=== PATIENT | female | born 1980 | race Caucasian/White ===

== ENCOUNTER 2019-05-14 09:42 | Observation (INO) | payer MEDICAID, SELFPAY | END 2019-05-14 19:46 | disposition home or self-care (01) | LOC: MEDSURG 09:43 | PROVIDERS: Admitting Provider Student in an Organized Health Care Education/Training Program; Family Provider Internal Medicine Cardiovascular Disease; PCP Family Medicine; Visit Provider Student in an Organized Health Care Education/Training Program | DX: R07.9 Chest pain, unspecified (principal); K21.9 Gastro-esophageal reflux disease without esophagitis; F41.9 Anxiety disorder, unspecified; J43.9 Emphysema, unspecified; F17.210 Nicotine dependence, cigarettes, uncomplicated; Z82.49 Family history of ischemic heart disease and other diseases of the circulatory system; I11.0 Hypertensive heart disease with heart failure; I50.9 Heart failure, unspecified | CPT/HCPCS: 36415 ×2; 36600; 71045; 71275; 74177; 78452; 80048; 80053; 80061; 81001; 81025; 82803; 83036; 83605; 83880; 84484 ×3; 85025 ×2; 85378; 87040 ×2; 87804 ×2; 93005 ×2; 93017; 96374; 99285; A9500; G0378 ×115; J2785; Q9967 ==

== ENCOUNTER → 2019-05-20 07:52 | Outpatient (BNVA) | payer MEDICAID, SELFPAY | PROVIDERS: Family Provider Internal Medicine Cardiovascular Disease; PCP Family Medicine; Visit Provider Nurse Practitioner Family | DX: N30.91 Cystitis, unspecified with hematuria (principal); N20.0 Calculus of kidney; N99.89 Other postprocedural complications and disorders of genitourinary system; R31.0 Gross hematuria | CPT/HCPCS: 81001 ==

== ENCOUNTER 2019-05-26 11:46 | Emergency (ER) | payer MEDICAID, SELFPAY ==
[2019-05-26] VITALS (9 sets, daily range): BP systolic 111–155; BP diastolic 69–89; PULSE 55–68; RESP 12–21; TEMP 36.8; O2SAT 98–100; BMI 25.0
--- NOTE | 2019-05-26 11:54 | ED_ITS ---
Entered by Sunshine Stanley, acting as scribe for Magaly Cabrera MD, [facility] [place]PI - Chest Pain General: Chief Complaint: Chest Pain Stated Complaint: cp Time Seen by Provider: 05/26/19 11:50 Source: patient Mode of arrival: ambulatory Limitations: no limitations History of Present Illness: HPI narrative: 38 yo Female presents to ED with complaint of chest pain. Pt states that this happened yesterday too. Pt states that she had tingling in her right arm and in her chest. Pt states that this episode started about an hour ago. Pt states that her mom just from a heart attack in February. Pt states that she had nausea when the episode started. Pt states that she had sweating during the episode as well. MD complaint: chest pain Onset (ago): hour(s) (1) Timing of current episode: episodic and still present Prior episodes: Yes Onset: during rest Pain location: substernal Pain radiation: right arm Quality: other (tingling) Exacerbating factors: nothing Associated symptoms: Reports diaphoresis and nausea; Deny fever(s) Review of Systems General: Reports: 10 or more systems reviewed and unremarkable except in HPI and below Const: Reports: chills and diaphoresis; Denies: fever Card: Reports: chest pain and lightheadedness Resp: Denies: productive cough or non-productive cough GI: Reports: nausea PFSH ED PFSH: Statuses (acute, chronic, etc) shown below reflect problem list status as previously entered and may not be historically accurate Medical History Calculus of kidney (Acute) Cystitis (Acute) Gross hematuria (Acute) Surgical History H/O: hysterectomy (Acute) History of appendectomy (Acute) S/P cholecystectomy (Acute) Status post biopsy of kidney (Acute) Social History Smoking and tobacco status: former smoker Alcohol intake: former Marital status: Legally Current occupational status: employed Physical Exam Const: COMMON NORMALS: no apparent distress, average body habitus, oriented x3, no limitations, healthy appearing, alert and well nourished HENMT: COMMON NORMALS: normocephalic, head/scalp atraumatic, hearing grossly normal bilaterally, external ears normal, EAC's normal, TM's normal bilaterally, external nose normal, nasal mucous membranes and turbinates normal, moist oral mucous membranes, oropharynx normal, dentition normal and gingiva normal HEAD & SCALP: normocephalic and atraumatic NOSE: external nose normal and nasal mucous membranes and turbinates normal EXTERNAL EAR: Yes external ears normal EXTERNAL AUDITORY CANAL: EAC's normal TYMPANIC MEMBRANE: TM's normal bilaterally Eye: COMMON NORMALS: PERRL, EOMs intact bilaterally, conjunctivae normal, no scleral icterus, no papilledema, normal visual nick by confrontation and fundi normal bilaterally CONJUNCTIVA: Yes conjunctivae normal PUPIL: Yes PERRL DIRECT OPHTHALMOSCOPY: Yes no papilledema and Yes fundi normal bilaterally Neck/C-Spine: COMMON NORMALS: full ROM, supple, no meningeal signs, no JVD and no carotid bruits Chest: COMMONS NORMALS: inspection of chest normal and palpation of chest normal Resp: COMMON NORMALS: normal respiratory effort, no retractions, no use of accessory muscles, clear to auscultation bilaterally and percussion normal AUSCULTATION: clear to auscultation bilaterally PERCUSSION: percussion normal Cardio: COMMON NORMALS: no JVD, regular rate, regular rhythm, S1 normal heart sound, S2 normal heart sound, no gallops, no clicks, no murmurs, no rub and peripheral pulses 2+ throughout RATE: regular rate RHYTHM: regular rhythm HEART SOUNDS: S1 normal and S2 normal PERIPHERAL PULSES: pulses 2+ throughout GI: COMMON NORMALS: normal to inspection, nondistended, normoactive bowel sounds, soft to palpation, non-tender, no hepatosplenomegaly, no masses and no bruits PALPATION: Yes soft and Yes no hepatosplenomegaly : COMMON NORMALS: Yes no CVA tenderness BLADDER/KIDNEY EXAM: Yes no CVA tenderness Back/Pelvis: COMMON NORMALS: no CVA tenderness Extremity: COMMON NORMALS: normal to inspection, full ROM, normal capillary refill, no joint enlargement, no clubbing, cyanosis or edema, no calf tenderness and no pedal edema Neuro: COMMON NORMALS: oriented x3 SENSORIUM/ORIENTATION: Yes alert MENINGEAL SIGNS: Yes no meningeal signs Skin: COMMON NORMALS: no rashes or lesions noted, no wounds, skin turgor normal, no jaundice, no petechiae and no mottling GENERAL SKIN EXAM: no rashes or lesions noted and turgor normal Course Vital Signs: Vital signs: Vital Signs Temperature 98.3 F 05/26/19 11:54 Pulse Rate 62 05/26/19 16:15 Respiratory Rate 12 05/26/19 16:15 Blood Pressure 119/71 05/26/19 16:15 Pulse Oximetry 99 05/26/19 15:45 MDM - Chest Pain MDM Narrative: Medical decision making narrative: 38-year-old female patient with minimal cardiac risk factors. She presented with chest pain. Labs and imaging negative for acute findings including negative high-sensitivity troponin x2. D-dimer negative. The patient is discharged home with no new orders. Chest pain unlikely to be cardiac or serious. She voiced understanding and is in agreement with the plan. Heart score is 0, she is low risk for any major adverse cardiac event. Differential Diagnosis: Cardiac arrest differential diagnosis: Likely acute massive pulmonary embolism and acute myocardial infarction Medical Records: Attestation: I reviewed the patient's medical records. Lab Data: Attestation: I reviewed the patient's lab results. Labs: Lab Results 05/26/19 05/26/19 05/26/19 Range/Units 12:20 12:20 12:20 WBC 7.3 (4.0-10.0) 10^3/ uL RBC 4.14 (4.1-5.3) 10^6/u L Hgb 12.6 (11.5-15.3) g/dL Hct 38.9 (37.0-47.0) % MCV 94.0 (81-99) fL MCH 30.4 (28.0-34.0) pg MCHC 32.4 (30.0-36.0) g/dL RDW 12.2 (12.1-15.1) % Plt Count 204 (130-400) 10^3/c mm MPV 10.6 H (7.4-10.4) fL Neut % (Auto) 69.4 % Lymph % (Auto) 21.9 % Mobile % (Auto) 6.8 % Eos % (Auto) 1.2 % Baso % (Auto) 0.4 % Neut # (Auto) 5.0 (1.8-7.7) 10^3/u L Lymph # (Auto) 1.6 (0.8-4.8) 10^3/u L Mobile # (Auto) 0.5 (0.2-0.9) 10^3/u L Eos # (Auto) 0.1 (0.0-0.8) 10^3/u L Baso # (Auto) 0.0 (0.0-0.1) 10^3/u L Nucleated RBC % (a uto) 0 % Nucleated RBCs # 0.0 /100WBC D-Dimer 0.36 (0-0.59) ug/mIFE U Sodium 137 (136-145) mmol/L Potassium 3.5 (3.5-5.1) mmol/L Chloride 100 (98-107) mmol/L Carbon Dioxide 25 (22-29) mmol/L Anion Gap 15.5 (5-19) BUN 9 (6-20) mg/dL Creatinine 0.9 (0.5-0.9) mg/dL GFR Calculation 69.3 L (90-130) mL/min Glucose 99 (74-109) mg/dL Calcium 9.8 (8.6-10.0) mg/Dl Total Bilirubin 0.4 (0.15-1.2) mg/dL AST 16 (0-32) U/L ALT 11 (0-33) U/L Alkaline Phosphata se 65 (35-105) IU/L Troponin T Baselin e (0-10) ng/mL Troponin T 120 Min tangirnaq (0-10) ng/mL Delta Troponin T (0-10) ABS# NT-Pro-B Natriuret Pep 117 (0-125) pg/mL Total Protein 6.7 (6.6-8.7) g/dL Albumin 4.8 (3.5-5.2) g/dL Globulin 1.9 (1.3-4.6) g/dL Lipase 14 (13-60) U/L 05/26/19 05/26/19 Range/Units 12:20 14:36 WBC (4.0-10.0) 10^3/ uL RBC (4.1-5.3) 10^6/u L Hgb (11.5-15.3) g/dL Hct (37.0-47.0) % MCV (81-99) fL MCH (28.0-34.0) pg MCHC (30.0-36.0) g/dL RDW (12.1-15.1) % Plt Count (130-400) 10^3/c mm MPV (7.4-10.4) fL Neut % (Auto) % Lymph % (Auto) % Mobile % (Auto) % Eos % (Auto) % Baso % (Auto) % Neut # (Auto) (1.8-7.7) 10^3/u L Lymph # (Auto) (0.8-4.8) 10^3/u L Mobile # (Auto) (0.2-0.9) 10^3/u L Eos # (Auto) (0.0-0.8) 10^3/u L Baso # (Auto) (0.0-0.1) 10^3/u L Nucleated RBC % (a uto) % Nucleated RBCs # /100WBC D-Dimer (0-0.59) ug/mIFE U Sodium (136-145) mmol/L Potassium (3.5-5.1) mmol/L Chloride (98-107) mmol/L Carbon Dioxide (22-29) mmol/L Anion Gap (5-19) BUN (6-20) mg/dL Creatinine (0.5-0.9) mg/dL GFR Calculation (90-130) mL/min Glucose (74-109) mg/dL Calcium (8.6-10.0) mg/Dl Total Bilirubin (0.15-1.2) mg/dL AST (0-32) U/L ALT (0-33) U/L Alkaline Phosphata se (35-105) IU/L Troponin T Baselin e 6 (0-10) ng/mL Troponin T 120 Min tangirnaq 6.08 (0-10) ng/mL Delta Troponin T 0.08 (0-10) ABS# NT-Pro-B Natriuret Pep (0-125) pg/mL Total Protein (6.6-8.7) g/dL Albumin (3.5-5.2) g/dL Globulin (1.3-4.6) g/dL Lipase (13-60) U/L Imaging Data^: CXR: Radiologist's impression: [address] [address] XRay Report Signed Patient: Lilly Garibay #: [id number] : 1980Acct#:[id number] Age/Sex: 38 / FADM Date: 05/26/19 Loc: ERRoom/Bed: Attending Dr: Ordering Provider/Ordering MD: Magaly Cabrera MD, [facility] Date of Service: 05/26/19 Procedure(s): XR chest 2V* [id number] Accession Number(s): [id number] Report Number: [id number] PROCEDURE INFORMATION: Exam: XR Chest, 2 Views Exam date and time: 05/26/2019 12:28 PM Age: 38 years old Clinical indication: Chest pain; Type not specified TECHNIQUE: Imaging protocol: XR of the chest Views: 2 views. COMPARISON: CR Chest 1 [place] [id number] 05/13/2019 11:13 AM FINDINGS: Lungs: Emphysematous change and interstitial prominence. Pleural space: No pleural effusion. Heart/Mediastinum: Normal configuration of the heart. Bones/joints: Mild degenerative change. Other findings: Status post cholecystectomy. Prominent stool. When correlating with the previous study, no significant interval changes are present. XR/XR chest 2V* [id number] IMPRESSION: Stable appearance of the chest, not significantly changed from 05/13/2019. Dictated By:Daniel Posadas MD Signed By:Daniel Posadas MDSigned Date/Time:05/26/197 DD/ 1325 EKG Data^: EKG 1: Attestation: I personally reviewed and interpreted this EKG as follows: EKG interpretation date: 05/26/19 EKG interpretation time: 11:53 Prior EKG tracings: not available for review Interpretation: sinus rhythm HR [address] changes EKG 2: Attestation: I personally reviewed and interpreted this EKG as follows: EKG interpretation date: 05/26/19 EKG interpretation time: 13:41 Interpretation: Sinus bradycardia. Heart rate 59. Unchanged from prior EKG from earlier today. Discharge Plan Discharge Patient Disposition: Home, Self-Care Clinical Impression: Chest pain Qualifiers: Chest pain type: other chest pain Qualified Code(s): R07.89 - Other chest pain Condition: Stable Prescriptions: No Action cefuroxime axetil 500 mg tablet 500 mg PO BID Qty: 20 RF: 3 lisinopril [Zestril] 2.5 mg Tablet 2.5 mg PO DAILY RF: 0 methadone 10 mg Tablet 60 mg PO DAILY RF: 0 omeprazole 20 mg Tablet,Delayed Release (Dr/Ec) 20 mg PO DAILY RF: 0 vitamin B complex 2 tab PO DAILY RF: 0 Discharge Orders: Discharge Order (Routine); Ordered 05/26/19 Ordered By: Magaly Cabrera Referrals: Tuyet Urias DO [Primary Care Provider] - 1-3 days Natanael Rm [Family Provider] - 1-3 days Activity Restrictions/Additional Instructions: Return for any new or worsening symptoms. Follow-up with your primary care provider within 3 days. Take your medications as prescribed by your primary care provider. Coding Level of Care Code ED Donkey Doctor for Chg Fwd Exam Problem Focused The documentation recorded by the Lizeth contreras Carmen, accurately reflects the service I personally performed and the decisions made by Rick douglas Adegoke I, MD, [facility] May 26, 2019 11:46
--- NOTE | 2019-05-26 12:02 | XRR_ITS ---
PROCEDURE INFORMATION: Exam: XR Chest, 2 Views Exam date and time: 05/26/2019 12:28 PM Age: 38 years old Clinical indication: Chest pain; Type not specified TECHNIQUE: Imaging protocol: XR of the chest Views: 2 views. COMPARISON: CR Chest 1 [place] [id number] 05/13/2019 11:13 AM FINDINGS: Lungs: Emphysematous change and interstitial prominence. Pleural space: No pleural effusion. Heart/Mediastinum: Normal configuration of the heart. Bones/joints: Mild degenerative change. Other findings: Status post cholecystectomy. Prominent stool. When correlating with the previous study, no significant interval changes are present. XR/XR chest 2V* [id number] IMPRESSION: Stable appearance of the chest, not significantly changed from 05/13/2019.
--- NOTE | 2019-05-26 12:03 | ECG_ITS ---
Measurements Intervals [place] Rate: 64 P: 64 ME: 145 QRS: 53 QRSD: 118 T: 20 QT: 437 QTc: 452 SINUS RHYTHM INCOMPLETE RIGHT BUNDLE BRANCH BLOCK [90+ ms QRS DURATION, TERMINAL R IN V1/V2, 40+ ms S IN I/aVL/V4/V5/V6] Compared to ECG 05/13/2019 16:55:52 Incomplete right bundle-branch block now present T-wave abnormality no longer present Electronically Signed On 05-26-2019 19:19:55 ELECTRIC MOTORMAN by Geovanny Whitley M.D. [email or web address] kaplan
[2019-05-26] MEDS: nitroglycerin 0.4 mg sublingual Tablet SUBLINGUAL (12:09)
[2019-05-26] MEDS: aspirin 325 mg Tablet PO (12:09)
--- NOTE | 2019-05-26 12:22 | PC.NURSE ---
Chest pain now resolved. Additional nitro withheld
--- NOTE | 2019-05-26 12:23 | PC.NURSE ---
Patient to imaging via wheelchair
--- NOTE | 2019-05-26 12:34 | PC.NURSE ---
Report putting her head on husbands chest and listening to his heartbeat relieves her own chest pain. She wants to know how she can distinguish anxiety from a heart attack.
[2019-05-26 12:44] LABS: Basophils % 0.4 %; Eosinophils # 0.1 10^3/uL (0.0-0.8); Eosinophils % 1.2 %; Hematocrit 38.9 % (37.0-47.0); Hemoglobin 12.6 g/dL (11.5-15.3); Lymphocytes # 1.6 10^3/uL (0.8-4.8); Lymphocytes % 21.9 %; Mean Corpuscular HGB Conc 32.4 g/dL (30.0-36.0); Mean Corpuscular Hemoglobin 30.4 pg (28.0-34.0); Mean Platelet Volume 10.6 fL (7.4-10.4); Monocytes # 0.5 10^3/uL (0.2-0.9); Monocytes % 6.8 %; Neutrophils % 69.4 %; Nucleated Red Blood Cells % 0 %; Platelet Count 204 10^3/cmm (130-400); Red Blood Count 4.14 10^6/uL (4.1-5.3); Red Cell Distribution Width 12.2 % (12.1-15.1); White Blood Count 7.3 10^3/uL (4.0-10.0)
[2019-05-26 12:53] LABS: D Dimer 0.36 ug/mIFEU (0-0.59)
--- NOTE | 2019-05-26 13:05 | PC.NURSE ---
Patient denies pain or other symptoms at this time.
[2019-05-26 13:11] LABS: Alanine Aminotransferase 11 U/L (0-33); Albumin Level 4.8 g/dL (3.5-5.2); Alkaline Phosphatase 65 IU/L (35-105); Anion Gap 15.5 (5-19); Aspartate Amino Transferase 16 U/L (0-32); Blood Urea Nitrogen 9 mg/dL (6-20); Calcium 9.8 mg/Dl (8.6-10.0); Carbon Dioxide 25 mmol/L (22-29); Chloride 100 mmol/L (98-107); Globulin 1.9 g/dL (1.3-4.6); Glomerular Filtration Rate 69.3 mL/min (90-130); Glucose 99 mg/dL (74-109); Lipase 14 U/L (13-60); NT Pro B Type Natriuretic Pept 117 pg/mL (0-125); Potassium 3.5 mmol/L (3.5-5.1); Sodium 137 mmol/L (136-145); Total Bilirubin 0.4 mg/dL (0.15-1.2); Total Protein 6.7 g/dL (6.6-8.7)
[2019-05-26 13:26] LABS: Troponin(5th) Baseline 6 ng/mL (0-10)
--- NOTE | 2019-05-26 14:03 | ECG_ITS ---
Measurements Intervals [place] Rate: 59 P: 60 KS: 154 QRS: 53 QRSD: 110 T: 37 QT: 455 QTc: 451 SINUS BRADYCARDIA INCOMPLETE RIGHT BUNDLE BRANCH BLOCK [90+ ms QRS DURATION, TERMINAL R IN V1/V2,40+ ms S IN I/aVL/V4/V5/V6] INTERPRETATION BASED ON A DEFAULT AGE OF 38 YEARS Compared to ECG 05/13/2019 16:55:52 Incomplete right bundle-branch block now present Sinus rhythm no longer present T-wave abnormality no longer present Electronically Signed On 05-26-2019 19:23:18 TOOL ROOM MACHINIST by Geovanny Whitley M.D. [email or web address] kaplan
--- NOTE | 2019-05-26 15:00 | PC.NURSE ---
Note that patient requests update on comment section in EMR. At bedside to give update. Patient reports her blood was just recollected. Reasoning provided. Patient verbalized understanding and will continue to wait for results.
[2019-05-26 15:54] LABS: Troponin 5 2HR 6.08 ng/mL (0-10); Troponin 5 2HR Delta 0.08 ABS# (0-10)
== END 2019-05-26 16:46 | disposition home or self-care (01) ==
PROVIDERS: Emergency Provider Family Medicine; Family Provider Internal Medicine Cardiovascular Disease; PCP Family Medicine
DX: R07.89 Other chest pain (principal); Z87.891 Personal history of nicotine dependence
CPT/HCPCS: 36415; 71046; 80053; 83690; 83880; 84484; 85025; 85378; 93005; 99282

== ENCOUNTER 2019-07-01 09:44 | Outpatient (CLI) | payer MEDICAID, SELFPAY ==
--- NOTE | 2019-07-01 10:00 | XR_ITS ---
WS: [id number] XR KUB [id number] REASON FOR EXAM: Kidney stone FINDINGS: Considerable fecal stasis is seen across the colon. The renal shadows do not appear to be enlarged and no definite stones are seen. Along the left side a t the L5 level there is a questionable stone frozen. XR/XR KUB [id number] IMPRESSION: Questionable stone at the L5 level on the left in the region of the ureter Fecal stasis.
== END 2019-07-01 09:45 | disposition home or self-care (01) ==
LOC: RAD 09:46
PROVIDERS: Family Provider Internal Medicine Cardiovascular Disease; PCP Family Medicine; Visit Provider Urology
DX: N20.0 Calculus of kidney (principal)
CPT/HCPCS: 74018; 81001; 87086; 88112

== ENCOUNTER → 2019-07-26 14:04 | Outpatient (BNVA) | payer OTHER, SELFPAY | PROVIDERS: Family Provider Internal Medicine Cardiovascular Disease; PCP Family Medicine; Referring Provider Family Medicine; Visit Provider Family Medicine | DX: N63.10 Unspecified lump in the right breast, unspecified quadrant (principal); N63.20 Unspecified lump in the left breast, unspecified quadrant; M25.561 Pain in right knee; M77.8 Other enthesopathies, not elsewhere classified | CPT/HCPCS: 88175 ==

== ENCOUNTER 2019-10-11 08:37 | Outpatient (CLI) | payer MEDICAID, SELFPAY ==
--- NOTE | 2019-10-11 08:57 | MM_ITS ---
WS: [id number] BILATERAL DIGITAL DIAGNOSTIC MAMMOGRAPHY WITH CAD CLINICAL INFORMATION: breast density HISTORY: Diagnostic mammogram. 6 Bilateral breast lumps. COMPARISON: August 14, 2014 TECHNIQUE: Bilateral CC and MLO views. FINDINGS: Palpable markers both breasts. No definite new mammographic abnormalities deep to the palpable marker s. The breasts are composed of heterogeneous fibroglandular density tissue, which can limit the detectio n of small underlying mass lesions. Ultrasound is pending. ULTRASOUND BREAST BILATERAL TECHNIQUE: Ultrasound bilateral focused area of concern. CLINICAL INFORMATION: breast density COMPARISON: Ultrasound August 14, 2014 FINDINGS: Ultrasound right breast at the 4:00 position. No evidence of cystic or solid lesion. No pathologic ab normalities. Ultrasound left breast patient directed 10 and 12:00 positions. No cystic or solid lesions. No suspic ious lesions. No lesions to target for biopsy. Dense normal appearing fibroglandular tissue similar t o 2014 at the 12:00 position. No suspicious findings. MM/[place] [id number] IMPRESSION: BI-RADS: 2-Benign FOLLOW UP: 1 Year Follow-up Recommend return to annual screening mammography.
== END 2019-10-11 08:38 | disposition home or self-care (01) ==
LOC: RADSHAW 08:41
PROVIDERS: Visit Provider Family Medicine
DX: R92.2 Inconclusive mammogram (principal)
CPT/HCPCS: 76641; 77066

== ENCOUNTER → 2019-10-21 15:11 | Outpatient (BNVA) | payer MEDICAID, SELFPAY | PROVIDERS: PCP Family Medicine; Visit Provider Nurse Practitioner | DX: G43.709 Chronic migraine without aura, not intractable, without status migrainosus (principal); G47.00 Insomnia, unspecified; Z87.891 Personal history of nicotine dependence | CPT/HCPCS: 99213; 99999 ==

== ENCOUNTER → 2019-10-29 15:00 | Outpatient (BNVA) | payer MEDICAID, SELFPAY | PROVIDERS: PCP Family Medicine; Visit Provider Family Medicine | DX: R63.5 Abnormal weight gain (principal); G47.00 Insomnia, unspecified | CPT/HCPCS: 84439; 84443 ==

== ENCOUNTER → 2019-11-12 15:23 | Outpatient (BNVA) | payer MEDICAID, SELFPAY | PROVIDERS: PCP Family Medicine; Visit Provider Family Medicine | DX: R35.0 Frequency of micturition (principal) | CPT/HCPCS: 81000 ==

== ENCOUNTER 2019-11-18 14:18 | Outpatient (CLI) | payer MEDICAID, SELFPAY ==
--- NOTE | 2019-11-18 14:15 | XRR_ITS ---
PROCEDURE INFORMATION: Exam: XR Abdomen, 1 View Exam date and time: 11/18/2019 3:16 PM Age: 38 years old Clinical indication: Condition or disease; Other: Stone TECHNIQUE: Imaging protocol: XR of the abdomen. Views: Frontal supine view of the abdomen. 1 View. COMPARISON: CR XR KUB [id number] 07/01/2019 10:03 AM FINDINGS: Gastrointestinal tract: Normal. No bowel dilation. Bones/joints: Unremarkable. XR/XR KUB [id number] IMPRESSION: No acute findings.
== END 2019-11-18 14:19 | disposition home or self-care (01) ==
LOC: RAD 14:19
PROVIDERS: PCP Family Medicine; Visit Provider Nurse Practitioner Family
DX: N20.0 Calculus of kidney (principal)
CPT/HCPCS: 74018

== ENCOUNTER 2019-12-18 13:43 | Outpatient (CLI) | payer MEDICAID, SELFPAY ==
--- NOTE | 2019-12-18 14:15 | XR_ITS ---
WS: [id number] SHOULDER LEFT TECHNIQUE: 3 views of the left shoulder CLINICAL INFORMATION: chronic left shoulder pain COMPARISON: None. FINDINGS: Normal acromioclavicular joint. Calcific tendinitis rotator cuff. Normal glenohumeral joint. Acromion is normal in appearance. Normal glenoid. No evidence of acute fracture dislocation. XR/XR shoulder LT min 2V* [id number] IMPRESSION: Calcific tendinitis rotator cuff insertion.
== END 2019-12-18 13:44 | disposition home or self-care (01) ==
LOC: RADWPI 13:46
PROVIDERS: PCP Family Medicine; Visit Provider Family Medicine
DX: M25.512 Pain in left shoulder (principal); G89.29 Other chronic pain; M75.32 Calcific tendinitis of left shoulder
CPT/HCPCS: 73030

== ENCOUNTER 2019-12-31 13:53 | Outpatient (CLI) | payer MEDICAID, SELFPAY ==
--- NOTE | 2019-12-31 14:15 | XR_ITS ---
WS: [id number] EXAM: ABDOMINAL KUB DATE OF EXAMINATION: 12/31/2019, 1406 hour COMPARISON: Abdominal KUB from 11/18/2019 and 07/01/2019. HISTORY: Patient is 39 years old with follow-up kidney stone. FINDINGS: Bowel gas pattern is normal. Increased stool overlies the right kidney silhouette obscuring detail. A s presented no definite calcifications seen over either kidney silhouette or course of the proximal u reters. Multiple calcifications in the pelvis are felt to represent phleboliths. Calcification just t o the lateral margin of the S4 segment is similar to the 11/18/2019 KUB but not seen on the 07/01/2019 K UB. Question if this is a left ureteral stone. Clips in the right upper quadrant correlate with vinayak cystectomy changes. XR/XR KUB [id number] IMPRESSION: Normal bowel gas pattern. Calcification to the left of the sacrum around the S4 segment not seen on 07/01/2019 exam but stable compared to 11/18/2019 exam. [facility] ion left ureteral stone.
== END 2019-12-31 13:54 | disposition home or self-care (01) ==
LOC: RAD 13:56
PROVIDERS: PCP Family Medicine; Visit Provider Urology
DX: N20.9 Urinary calculus, unspecified (principal)
CPT/HCPCS: 74018; 80053; 81001

== ENCOUNTER → 2020-01-30 09:43 | Outpatient (BNVA) | payer MEDICAID, SELFPAY | PROVIDERS: PCP Family Medicine; Referring Provider Family Medicine; Visit Provider Anesthesiology Pain Medicine | DX: M47.812 Spondylosis without myelopathy or radiculopathy, cervical region (principal); M54.12 Radiculopathy, cervical region; M47.816 Spondylosis without myelopathy or radiculopathy, lumbar region; M54.42 Lumbago with sciatica, left side; M54.41 Lumbago with sciatica, right side; M54.81 Occipital neuralgia; M54.9 Dorsalgia, unspecified; F17.210 Nicotine dependence, cigarettes, uncomplicated | CPT/HCPCS: 99203; 99204 ==

== ENCOUNTER → 2020-02-07 10:53 | Outpatient (BNVA) | payer MEDICAID, SELFPAY | PROVIDERS: PCP Family Medicine; Visit Provider Surgery | DX: R10.13 Epigastric pain (principal); Z20.828 Contact with and (suspected) exposure to other viral communicable diseases | CPT/HCPCS: 87635 ==

== ENCOUNTER 2020-02-12 06:27 | Day surgery (SDC) | payer MEDICAID, SELFPAY ==
[2020-02-10 10:42] VITALS: BMI 26.6
[2020-02-12 06:41] VITALS: BP 130/76; PULSE 77; RESP 18; TEMP 36.5; O2SAT 98; BMI 26.6
[2020-02-12] MEDS: sodium chloride 0.9% 1,000 ML 30 ML IV (06:48)
--- NOTE | 2020-02-12 06:57 | ANES.PREANE2 ---
Pre-Anesthetic Assessment Pre-Anesthetic Assessment: Height/Weight: Height 1.65 m Weight 72.575 kg Temp Pulse Resp BP Pulse Ox 97.7 F 77 18 130/76 98 02/12/20 06:41 02/12/20 06:41 02/12/20 06:41 02/12/20 06:41 02/12/20 06:41 Preop Diagnosis: EPIGASTRIC SILVA Proposed Procedure: Operation Date: 02/12/20 07:45 Proposed Procedures p EGD 30734 R10.13(Not Applicable) - Srinivas Nogueira MD Familial anesthetic complications: nONE Last intake: Intake Last Liquid Date 02/11/20 Last Liquid Time 20:00 Last Solid Date 02/11/20 Last Solid Time 20:00 Social: Social History: Tobacco and No alcohol Exam: Pre-Anes Outpt Exam: alert, oriented x 3, clear to auscultation bilaterally and regular rate & rhythm Airway: Cervical ROM: WNL MP: 1 Dentition: Full CV/HEM: CV/HEM: HTN and Palp Comments: AAA - stable : : Chronic renal Insufficiency GI: GI: GERD Anesthetic Plan: ASA status: 2 Anesthesia: MAC Risk of > 500 ml blood loss (7ml/kg in children): No Meds/Allergies Current Medications: Current Medications Generic Name Dose Route Start Last Admin Trade Name Freq PRN Reason Stop Dose Admin Sodium Chloride 1,000 mls @ 30 ml s/hr 02/12/20 06:45 02/12/20 06:48 Sodium Chloride 0.9% IV 02/13/20 06:44 30 mls/hr .Q24H GRACE Administration PFSH Anesthesia PFSH: Medical History (Updated 01/30/20 @ 10:48 by Tom Hickman MD) Calculus of kidney Cystitis GERD (gastroesophageal reflux disease) Gross hematuria Headache, chronic migraine without aura Palpitations Surgical History H/O: hysterectomy History of appendectomy S/P cholecystectomy Status post biopsy of kidney Family History Father Cancer Hypertension Mother Hypertension Social History (Updated 01/30/20 @ 10:16 by BRAD Funes) Smoking and tobacco status: current every day smoker cigarettes Packs smoked per day: 1 Alcohol intake: never Marital status: Legally Current occupational status: employed History of recent travel: No Data Anesthesia Cardiac Studies: No Data to Display
--- NOTE | 2020-02-12 07:33 | W.PM.OPSUD ---
Surgery/Procedure H&P Update DATE OF PROCEDURE: February 12, 2020 DATE H&P PERFORMED: 01/27/20 H&P UPDATE INFORMATION: I have reviewed H&P completed within last 30 days, I have examined patient prior to procedure and No changes to prior documentation PREOP DIAGNOSIS: EPIGASTRIC SILVA PRIMARY INDICATION FOR PROCEDURE: The same PLANNED PROCEDURE: Operation Date: 02/12/20 07:45 Proposed Procedures p EGD 39726 R10.13(Not Applicable) - Srinivas Nogueira MD
[2020-02-12 07:51] VITALS: BP 97/57; PULSE 55; RESP 18; TEMP 36.4; O2SAT 94
--- NOTE | 2020-02-12 07:56 | ANE.PACU2 ---
Inpatient post-anesthesia follow up: Airway intact: Yes Vital signs: Temperature 97.5 F Pulse Rate 55 Respiratory Rate 18 Blood Pressure 97/57 Pulse Oximetry 94 Oxygen Delivery Me thod Room Air Oxygen Flow Rate Fraction of Inspir ed Oxygen Hydration adequate: Yes Nausea and vomiting: No Mental status: Baseline
[2020-02-13 06:02] LABS: H. Pylori / CLO Test Negative
== END 2020-02-12 08:10 | disposition home or self-care (01) ==
PROVIDERS: PCP Family Medicine; Visit Provider Surgery
PROC: 0DJ08ZZ Inspection of Upper Intestinal Tract, Via Natural or Artificial Opening Endoscopic (ICD-10-PCS; CPT 43235; principal; 2020-02-12 07:45)
DX: R10.13 Epigastric pain (principal); K29.70 Gastritis, unspecified, without bleeding; I10 Essential (primary) hypertension; K21.9 Gastro-esophageal reflux disease without esophagitis; Z87.891 Personal history of nicotine dependence
CPT/HCPCS: 12345; 43239; 87077; J2704; J7030

== ENCOUNTER → 2020-02-26 15:41 | Outpatient (BNVA) | payer MEDICAID, SELFPAY | PROVIDERS: PCP Family Medicine; Visit Provider Nurse Practitioner Family | DX: R31.0 Gross hematuria (principal); R10.9 Unspecified abdominal pain; N20.0 Calculus of kidney; K59.09 Other constipation | CPT/HCPCS: 81001 ==

== ENCOUNTER → 2020-02-27 08:56 | Outpatient (BNVA) | payer MEDICAID, SELFPAY | PROVIDERS: PCP Family Medicine; Visit Provider Anesthesiology Pain Medicine | DX: M47.812 Spondylosis without myelopathy or radiculopathy, cervical region (principal); M47.816 Spondylosis without myelopathy or radiculopathy, lumbar region; M54.81 Occipital neuralgia; M54.9 Dorsalgia, unspecified | CPT/HCPCS: 99213 ==

== ENCOUNTER 2020-02-27 09:35 | Outpatient (CLI) | payer MEDICAID, SELFPAY ==
--- NOTE | 2020-02-27 09:43 | XR_ITS ---
WS: [id number] LUMBAR SPINE TECHNIQUE: 5 views of the lumbar spine CLINICAL INFORMATION: pain COMPARISON: None. FINDINGS: Cholecystectomy clips. Aortic calcification. Five isv-ihf-gtlperv lumbar vertebral bodies. Disc space heights are well preserved. No compression f ractures. No spondylolisthesis. Visualized sacroiliac joints are normal. Normal visualized soft tissu es. Partially visualized bowel gas pattern is normal. XR/XR lumbar spine min 4V [id number] IMPRESSION: 1. Normal lumbar spine. No acute compression fractures. 2. Disc space size vertebral body heights well-preserved. 3. Mild chronic anterior wedging lower thoracic spine. 4. No other significant findings.
== END 2020-02-27 09:36 | disposition home or self-care (01) ==
LOC: RADWPI 09:38
PROVIDERS: PCP Family Medicine; Visit Provider Anesthesiology Pain Medicine
DX: M54.5 Low back pain (principal); M48.54XA Collapsed vertebra, not elsewhere classified, thoracic region, initial encounter for fracture; X58.XXXA Exposure to other specified factors, initial encounter
CPT/HCPCS: 72114

== ENCOUNTER → 2020-03-23 08:51 | Outpatient (BNVA) | payer MEDICAID, SELFPAY | PROVIDERS: PCP Family Medicine; Visit Provider Anesthesiology Pain Medicine | DX: M47.812 Spondylosis without myelopathy or radiculopathy, cervical region (principal); M54.41 Lumbago with sciatica, right side; M47.816 Spondylosis without myelopathy or radiculopathy, lumbar region; M54.81 Occipital neuralgia; M54.9 Dorsalgia, unspecified; G56.00 Carpal tunnel syndrome, unspecified upper limb; F17.210 Nicotine dependence, cigarettes, uncomplicated | CPT/HCPCS: 99214 ==

== ENCOUNTER → 2020-04-01 13:53 | Outpatient (BNVA) | payer MEDICAID, SELFPAY | PROVIDERS: PCP Family Medicine; Visit Provider Nurse Practitioner Family | DX: Z20.828 Contact with and (suspected) exposure to other viral communicable diseases (principal); J06.9 Acute upper respiratory infection, unspecified | CPT/HCPCS: 87635 ==

== ENCOUNTER → 2020-04-03 11:13 | Outpatient (BNVA) | payer MEDICAID, SELFPAY | PROVIDERS: PCP Family Medicine; Visit Provider Family Medicine | DX: E03.9 Hypothyroidism, unspecified (principal) | CPT/HCPCS: 84443 ==

== ENCOUNTER → 2020-05-18 08:37 | Outpatient (BNVA) | payer MEDICAID, SELFPAY | PROVIDERS: PCP Family Medicine; Visit Provider Anesthesiology Pain Medicine | DX: G89.29 Other chronic pain (principal); M47.816 Spondylosis without myelopathy or radiculopathy, lumbar region; M50.90 Cervical disc disorder, unspecified, unspecified cervical region; M54.12 Radiculopathy, cervical region; M47.812 Spondylosis without myelopathy or radiculopathy, cervical region; M79.602 Pain in left arm | CPT/HCPCS: 99214 ==

== ENCOUNTER → 2020-05-19 11:09 | Outpatient (BNVA) | payer MEDICAID, SELFPAY | PROVIDERS: PCP Family Medicine; Visit Provider Family Medicine | DX: R10.9 Unspecified abdominal pain (principal) | CPT/HCPCS: 81000 ==

== ENCOUNTER 2020-05-27 12:16 | Outpatient (RCR) | payer MEDICAID, SELFPAY | END 2020-06-14 23:59 | disposition home or self-care (01) | LOC: SPT 12:16 | PROVIDERS: PCP Family Medicine; Referring Provider Anesthesiology Pain Medicine; Visit Provider Anesthesiology Pain Medicine | DX: M54.2 Cervicalgia (principal); G89.29 Other chronic pain | CPT/HCPCS: 97110; 97162 ==

== ENCOUNTER 2020-05-27 14:16 | Outpatient (CLI) | payer MEDICAID, SELFPAY ==
--- NOTE | 2020-05-27 14:30 | XR_ITS ---
WS: [id number] KUB, 05/27/2020 Clinical Data: KIDNEY STONE Comparison: KUB, 12/31/2019. Findings: No abnormal intraabdominal masses or calcifications are seen. There is no dilatated small bowel or ev idence of obstruction. There is fecal material throughout the colon. There are phleboliths in the true pelvis. There are cora cifications in the right upper quadrant from a cholecystectomy. XR/XR KUB [id number] Impression: Negative KUB.
== END 2020-05-27 14:17 | disposition home or self-care (01) ==
LOC: RAD 14:22
PROVIDERS: PCP Family Medicine; Visit Provider Nurse Practitioner Family
DX: N20.0 Calculus of kidney (principal)
CPT/HCPCS: 74018; 81003

== ENCOUNTER 2020-06-15 06:00 | Outpatient (RCR) | payer MEDICAID, SELFPAY | END 2020-07-12 23:59 | disposition home or self-care (01) | LOC: SPT 06:00 | PROVIDERS: PCP Family Medicine; Referring Provider Anesthesiology Pain Medicine; Visit Provider Anesthesiology Pain Medicine | DX: M54.2 Cervicalgia (principal); G89.29 Other chronic pain | CPT/HCPCS: 97110 ==

== ENCOUNTER 2020-07-16 08:34 | Emergency (ER) | payer MEDICAID, SELFPAY ==
--- NOTE | 2020-07-16 08:38 | ECG_ITS ---
[facility] Test Date: 2020-07-16 Pat Name: Lilly Alvarado Department: Room: Gender: Female Evp Managing Director: : 1980 Requested By: Cheyanne Cornell Order Number: [id number] Vasques MD: Sugey Pat M.D. Measurements Intervals [place] Rate: 80 P: 62 PA: 140 QRS: 49 QRSD: 97 T: 12 QT: 359 QTc: 417 Interpretive Statements SINUS RHYTHM POSSIBLE RIGHT VENTRICULAR CONDUCTION DELAY [RSR (QR) IN V1/V2] NONSPECIFIC T-WAVE ABNORMALITY No previous ECG available for comparison Electronically Signed On 07-16-2020 21:58:30 SALES MERCHANDISE ASSOCIATE by Sugey Pat M.D. [email or web address]
--- NOTE | 2020-07-16 08:38 | XR_ITS ---
WS: [id number] Portable AP upright chest, 07/16/2020 Clinical Data: chest pain Comparison: PA and lateral chest, 05/26/2019. Findings: No nodules, masses or effusions are seen. The heart is normal. The pulmonary vascularity is not increased. No pneumonia or pneumothorax is seen. There are monitor leads on the chest wall. Ther e are clips in the right upper quadrant from a cholecystectomy. XR/XR chest 1V portable [id number] Impression: Negative chest.
[2020-07-16 08:43] VITALS: BP 122/77; PULSE 87; RESP 16; TEMP 36.2; O2SAT 96; BMI 26.6
--- NOTE | 2020-07-16 08:49 | ED_ITS ---
HPI - Arrhythmia/Palpitations General: Chief Complaint: Chest Pain Stated Complaint: high bp, heart palps Time Seen by Provider: 07/16/20 08:37 Source: patient Mode of arrival: ambulatory Limitations: no limitations History of Present Illness: HPI narrative: Patient is a 39-year-old female presents to ED today with a complaint of chest pain, palpitations and elevated blood pressure. Patient tells me she has had intermittent palpitations for a long time . She states she has seen Dr. Gomez for this. Patient tells me she also has been noticing elevated BP readings over the past week (150-160s over 90s). Patient tells me she has discussed this with her PCP but states every time she goes to their office her BP is normal so they do not ever prescribe her medications. Patient tells me she has leftover lisinopril that she was prescribed from the ED years ago that she takes as needed if she notices her blood pressure elevated. Patient states at work earlier today around 7 AM she began noticing pain in the middle of her chest. There is no radiation. Patient does not have a history of heart disease. MD complaint: palpitations Onset (ago): day(s) Duration: intermittent Severity: mild Context: occurred during rest Associated symptoms: Reports no associated symptoms; Deny nausea, pre-syncope, syncope or vomiting Review of Systems Const: Denies: fever(s), chills, body aches, fatigue or malaise Eyes: Denies: change in vision, blurry vision, photophobia, floaters or seeing flashes Card: Reports: chest pain and palpitations; Denies: irregular heart rhythm, edema, swelling of feet/ankles, lightheadedness, syncope, pre-syncope, dyspnea on exertion, orthopnea, leg pain with exertion or acrocyanosis Resp: Denies: dyspnea, productive cough, non-productive cough, pain on inspiration, change in phlegm color, hemoptysis or chest congestion GI: Denies: abdominal pain, nausea, vomiting, heartburn or diarrhea : Denies: flank pain, dysuria or urinary urgency Musc: Denies: neck pain, back pain or joint pain Skin/Breast: Denies: rash Neuro: Denies: headache(s), numbness in extremities, weakness in extremities, sensory changes, lack of coordination, difficulty walking, frequent falls, dizziness, confusion or Slurred speech present [facility] ED PFSH: Medical History (Updated 07/16/20 @ 11:40 by RILEY Tran) Calculus of kidney Cystitis GERD (gastroesophageal reflux disease) Gross hematuria Headache, chronic migraine without aura Palpitations Surgical History H/O: hysterectomy History of appendectomy S/P cholecystectomy Status post biopsy of kidney Family History Father Cancer Hypertension Mother Hypertension Social History Smoking and tobacco status: current every day smoker cigarettes Packs smoked per day: 1 Alcohol intake: never Marital status: Legally Current occupational status: employed History of recent travel: No Physical Exam Const: COMMON NORMALS: no acute distress, average body habitus, patient oriented x3, no limitations, healthy appearing, alert and well nourished GENERAL APPEARANCE: cooperative ORIENTATION/CONSCIOUSNESS: Yes awake, Yes oriented to person, Yes oriented to place and Yes oriented to time HENMT: COMMON NORMALS: normocephalic and atraumatic HEAD & SCALP: normocephalic and atraumatic Neck/C-Spine: COMMON NORMALS: full ROM, no lymphadenopathy, supple and no meningeal signs Chest: COMMONS NORMALS: normal inspection of the chest and normal palpation of entire chest wall Resp: COMMON NORMALS: normal respiratory effort and clear to auscultation bilaterally AUSCULTATION: clear to auscultation bilaterally Cardio: COMMON NORMALS: regular rate and regular rhythm RATE: regular rate RHYTHM: regular rhythm GI: COMMON NORMALS: Normal to inspection, nondistended, normoactive bowel sounds present, Soft to palpation, non-tender, No hepatosplenomegaly present and no masses PALPATION: Yes Soft to palpation and Yes No hepatosplenomegaly present : COMMON NORMALS: Yes no CVA tenderness BLADDER/KIDNEY EXAM: Yes no CVA tenderness Back/Pelvis: COMMON NORMALS: no CVA tenderness and thoracic and lumbar spine normal to inspection Extremity: COMMON NORMALS: normal to inspection Neuro: LAYLA COMA SCALE: document GCS findings Adams coma scale eye opening: Spontaneous Layla coma scale verbal response: Orientated Adams coma scale motor response: Obey commands Adams coma scale total score: 15 COMMON NORMALS: patient oriented x3, CN's II-XII intact bilaterally, moves all extremities, no focal motor deficits, no sensory deficits noted and gait normal SENSORIUM/ORIENTATION: Yes alert, Yes oriented to person, Yes oriented to place and Yes oriented to time MENINGEAL SIGNS: Yes no meningeal signs Skin: COMMON NORMALS: no rashes or lesions noted GENERAL SKIN EXAM: no rashes or lesions noted Course Vital Signs: Vital signs: Vital Signs Temperature 97.2 F L 07/16/20 08:43 Pulse Rate 67 07/16/20 11:00 Respiratory Rate 16 07/16/20 11:00 Blood Pressure 108/74 07/16/20 11:00 Pulse Oximetry 100 07/16/20 11:00 MDM - Arrhythmia/Palpitations MDM Narrative: Medical decision making narrative: Patient presented today with a complaint of chest pain, palpitations, and elevated blood pressure readings at home. Her blood pressure has been completely normal throughout her stay. Baseline and repeat EKGs are normal. I have not noticed any arrhythmia or ectopic beats on patient's monitor throughout her stay. Patient's baseline troponin is normal with a delta of 0. CXR is normal. Her TSH was very mildly elevated with a normal free T4 so I do not feel this is contributing to her palpitations. Patient does have a msw she can follow-up with if palpitations persist. Recommend she keep BP log to follow-up with her primary care provider. There is no need to place patient on antihypertensive medication at this point from the ED. Lab Data: Labs: Lab Results 07/16/20 07/16/20 07/16/20 Range/Units 08:38 08:38 08:38 WBC 11.2 H (4.0-10.0) 10^3/ uL RBC 4.49 (4.1-5.3) 10^6/u L Hgb 13.8 (11.5-15.3) g/dL Hct 43.2 (37.0-47.0) % MCV 96.2 (81-99) fL MCH 30.7 (28.0-34.0) pg MCHC 31.9 (30.0-36.0) g/dL RDW 13.2 (12.1-15.1) % Plt Count 237 (130-400) 10^3/c mm MPV 9.9 (7.4-10.4) fL Neut % (Auto) 78.1 % Lymph % (Auto) 14.2 % [place] % (Auto) 6.2 % Eos % (Auto) 0.6 % Baso % (Auto) 0.4 % Neut # (Auto) 8.75 H (1.8-7.7) 10^3/u L Lymph # (Auto) 1.6 (0.8-4.8) 10^3/u L [place] # (Auto) 0.7 (0.2-0.9) 10^3/u L Eos # (Auto) 0.1 (0.0-0.8) 10^3/u L Baso # (Auto) 0.1 (0.0-0.1) 10^3/u L Nucleated RBC % (a uto) 0 % Nucleated RBCs # 0.0 /100WBC Sodium 136 (136-145) mmol/L Potassium 4.0 (3.5-5.1) mmol/L Chloride 103 (98-107) mmol/L Carbon Dioxide 24 (22-29) mmol/L Anion Gap 13.0 (5-19) BUN 11 (6-20) mg/dL Creatinine 0.8 (0.5-0.9) mg/dL GFR Calculation 79.0 L (90-130) mL/min Glucose 79 (65-115) mg/dL Calculated Osmolal ity 280 L (285-295) mOsm/k g Calcium 9.1 (8.5-10.5) mg/dL Total Bilirubin 0.3 (0.15-1.2) mg/dL AST 13 (0-32) U/L ALT 9 (0-33) U/L Alkaline Phosphata se 75 (35-105) IU/L Troponin T Baselin e 6 (0-10) ng/L Troponin T 120 Min tetlin (0-10) ng/L Delta Troponin T (0-10) ABS# Total Protein 7.0 (6.6-8.7) g/dL Albumin 4.3 (3.5-5.2) g/dL Globulin 2.7 (1.3-4.6) g/dL TSH 4.96 H (0.27-4.20) uIU/ mL Free T4 (0.82-1.77) ng/d L HCG, Qual (Negative) Urine Opiates Scre en (Negative) ng/mL Ur Barbiturates Sc reen (Negative) ng/mL Ur Phencyclidine S crn (Negative) ng/mL Ur Amphetamines Sc reen (Negative) ng/mL U Benzodiazepines Scrn (Negative) ng/mL Urine Cocaine Scre en (Negative) ng/mL U Marijuana (THC) Screen (Negative) ng/mL 07/16/20 07/16/20 07/16/20 Range/Units 08:38 09:06 10:15 WBC (4.0-10.0) 10^3/ uL RBC (4.1-5.3) 10^6/u L Hgb (11.5-15.3) g/dL Hct (37.0-47.0) % MCV (81-99) fL MCH (28.0-34.0) pg MCHC (30.0-36.0) g/dL RDW (12.1-15.1) % Plt Count (130-400) 10^3/c mm MPV (7.4-10.4) fL Neut % (Auto) % Lymph % (Auto) % [place] % (Auto) % Eos % (Auto) % Baso % (Auto) % Neut # (Auto) (1.8-7.7) 10^3/u L Lymph # (Auto) (0.8-4.8) 10^3/u L [place] # (Auto) (0.2-0.9) 10^3/u L Eos # (Auto) (0.0-0.8) 10^3/u L Baso # (Auto) (0.0-0.1) 10^3/u L Nucleated RBC % (a uto) % Nucleated RBCs # /100WBC Sodium (136-145) mmol/L Potassium (3.5-5.1) mmol/L Chloride (98-107) mmol/L Carbon Dioxide (22-29) mmol/L Anion Gap (5-19) BUN (6-20) mg/dL Creatinine (0.5-0.9) mg/dL GFR Calculation (90-130) mL/min Glucose (65-115) mg/dL Calculated Osmolal ity (285-295) mOsm/k g Calcium (8.5-10.5) mg/dL Total Bilirubin (0.15-1.2) mg/dL AST (0-32) U/L ALT (0-33) U/L Alkaline Phosphata se (35-105) IU/L Troponin T Baselin e (0-10) ng/L Troponin T 120 Min tetlin (0-10) ng/L Delta Troponin T (0-10) ABS# Total Protein (6.6-8.7) g/dL Albumin (3.5-5.2) g/dL Globulin (1.3-4.6) g/dL TSH (0.27-4.20) uIU/ mL Free T4 0.88 (0.82-1.77) ng/d L HCG, Qual Negative (Negative) Urine Opiates Scre en Negative (Negative) ng/mL Ur Barbiturates Sc reen Negative (Negative) ng/mL Ur Phencyclidine S crn Negative (Negative) ng/mL Ur Amphetamines Sc reen Negative (Negative) ng/mL U Benzodiazepines Scrn Negative (Negative) ng/mL Urine Cocaine Scre en Negative (Negative) ng/mL U Marijuana (THC) Screen Negative (Negative) ng/mL 07/16/20 Range/Units 10:55 WBC (4.0-10.0) 10^3/ uL RBC (4.1-5.3) 10^6/u L Hgb (11.5-15.3) g/dL Hct (37.0-47.0) % MCV (81-99) fL MCH (28.0-34.0) pg MCHC (30.0-36.0) g/dL RDW (12.1-15.1) % Plt Count (130-400) 10^3/c mm MPV (7.4-10.4) fL Neut % (Auto) % Lymph % (Auto) % [place] % (Auto) % Eos % (Auto) % Baso % (Auto) % Neut # (Auto) (1.8-7.7) 10^3/u L Lymph # (Auto) (0.8-4.8) 10^3/u L [place] # (Auto) (0.2-0.9) 10^3/u L Eos # (Auto) (0.0-0.8) 10^3/u L Baso # (Auto) (0.0-0.1) 10^3/u L Nucleated RBC % (a uto) % Nucleated RBCs # /100WBC Sodium (136-145) mmol/L Potassium (3.5-5.1) mmol/L Chloride (98-107) mmol/L Carbon Dioxide (22-29) mmol/L Anion Gap (5-19) BUN (6-20) mg/dL Creatinine (0.5-0.9) mg/dL GFR Calculation (90-130) mL/min Glucose (65-115) mg/dL Calculated Osmolal ity (285-295) mOsm/k g Calcium (8.5-10.5) mg/dL Total Bilirubin (0.15-1.2) mg/dL AST (0-32) U/L ALT (0-33) U/L Alkaline Phosphata se (35-105) IU/L Troponin T Baselin e (0-10) ng/L Troponin T 120 Min tetlin 6.00 (0-10) ng/L Delta Troponin T 0 (0-10) ABS# Total Protein (6.6-8.7) g/dL Albumin (3.5-5.2) g/dL Globulin (1.3-4.6) g/dL TSH (0.27-4.20) uIU/ mL Free T4 (0.82-1.77) ng/d L HCG, Qual (Negative) Urine Opiates Scre en (Negative) ng/mL Ur Barbiturates Sc reen (Negative) ng/mL Ur Phencyclidine S crn (Negative) ng/mL Ur Amphetamines Sc reen (Negative) ng/mL U Benzodiazepines Scrn (Negative) ng/mL Urine Cocaine Scre en (Negative) ng/mL U Marijuana (THC) Screen (Negative) ng/mL Imaging Data^: CXR: Radiologist's impression: [facility] [address] [place] [address] XRay Report Signed Patient: Lilly Alvarado Unit #: [id number] : 1980 Age/Sex: 39 / F ADM Date: 07/16/20 Loc: ER Room/Bed: Attending Dr: Ordering Provider/Ordering MD: Cornell,Cheyanne PA Date of Service: 07/16/20 Procedure(s): XR chest 1V portable [id number] Accession Number(s): [id number] Report Number: [id number] WS: [id number] Portable AP upright chest, 07/16/2020 Clinical Data: chest pain Comparison: PA and lateral chest, 05/26/2019. Findings: No nodules, masses or effusions are seen. The heart is normal. The pulmonary vascularity is not increased. No pneumonia or pneumothorax is seen. There are monitor leads on the chest wall. There are clips in the right upper quadrant from a cholecystectomy. XR/XR chest 1V portable [id number] Impression: Negative chest. Dictated By: Srhuthi Urias MD Signed By: Shruthi Urias MD Signed Date/Time: 07/16/20917 DD/ 6 EKG Data^: EKG 1: EKG interpretation date: 07/16/20 EKG interpretation time: 08:46 Interpretation: Sinus rhythm Rate [address] elevation or depression changes noted Other EKG comments: Chest X-Ray 07/16/20 08:38 Impression: Negative chest. EKG 2: EKG interpretation date: 07/16/20 EKG interpretation time: 10:35 Interpretation: Sinus rhythm Rate [address] elevation or depression changes noted No acute changes from EKG performed earlier on same visit Other EKG comments: Chest X-Ray 07/16/20 08:38 Impression: Negative chest. Discharge Plan Discharge Patient Disposition: Home Clinical Impression: Chest pain Qualifiers: Chest pain type: unspecified Qualified Code(s): R07.9 - Chest pain, unspecified Condition: Stable Prescriptions: No Action tizanidine 4 mg tablet 4 mg PO BID PRN (Reason: muscle spasticity) Qty: 60 RF: 0 multivitamin Capsule 1 cap PO DAILY RF: 0 buprenorphine-naloxone 8-2 mg tablet, sublingual 1 tab SUBLINGUAL TID RF: 0 albuterol sulfate [ProAir HFA] 90 mcg/actuation HFA aerosol inhaler 2 puff inhalation Q6H PRN (Reason: shortness of breath or wheezing) Qty: 8.5 RF: 0 Zyrtec 10 mg tablet 10 mg PO DAILY@19 RF: 0 sertraline 100 mg tablet 100 mg PO DAILY@0600 RF: 0 omeprazole 40 mg capsule,delayed release(DR/EC) 40 mg PO BID@,19 RF: 0 levothyroxine 25 mcg tablet 25 mcg PO DAILY@06 RF: 0 trazodone 150 mg tablet 150 mg PO BEDTIME RF: 0 cefuroxime axetil 500 mg tablet 500 mg PO BID PRN (Reason: kidney infection) RF: 0 Flonase Allergy Relief 50 mcg/actuation spray,suspension 2 spray intranasal DAILY PRN (Reason: Nasal Congestion) RF: 0 Discharge Orders: Discharge ED (Routine); Ordered 07/16/20 Ordered By: Cheyanne Cornell Referrals: Tuyet Urias DO [Primary Care Provider] - Patient Instructions: Chest Pain - Noncardiac, Opioid Safety Activity Restrictions/Additional Instructions: [facility] is committed to fighting the nationwide opiate epidemic. We are providing ALL patients with information regarding opiate safety. If you received opiate pain medication during your stay or if you received a prescription for opiate pain medication-please review this handout. If not, you may disregard. Thank you. As we discussed please contact the heart services if palpitations continue so they may evaluate you. Keep a blood pressure log to discuss with primary care. Your blood pressure has been normal throughout your stay. You may return to the emergency department for worsening chest pain, shortness of breath, difficulty breathing, worsening palpitations, passing out episodes, or any other concerns you may have. Coding Level of Care Code ED Phone Representative for Chetan Frankel Exam Comprehensive
[2020-07-16 09:11] VITALS: O2SAT 96
[2020-07-16 09:23] LABS: Basophils # 0.1 10^3/uL (0.0-0.1); Basophils % 0.4 %; Eosinophils # 0.1 10^3/uL (0.0-0.8); Eosinophils % 0.6 %; Hematocrit 43.2 % (37.0-47.0); Hemoglobin 13.8 g/dL (11.5-15.3); Lymphocytes # 1.6 10^3/uL (0.8-4.8); Lymphocytes % 14.2 %; Mean Corpuscular HGB Conc 31.9 g/dL (30.0-36.0); Mean Corpuscular Hemoglobin 30.7 pg (28.0-34.0); Mean Corpuscular Volume 96.2 fL (81-99); Mean Platelet Volume 9.9 fL (7.4-10.4); Monocytes # 0.7 10^3/uL (0.2-0.9); Monocytes % 6.2 %; Neutrophils # 8.75 10^3/uL (1.8-7.7); Neutrophils % 78.1 %; Nucleated Red Blood Cells % 0 %; Platelet Count 237 10^3/cmm (130-400); Red Blood Count 4.49 10^6/uL (4.1-5.3); Red Cell Distribution Width 13.2 % (12.1-15.1); White Blood Count 11.2 10^3/uL (4.0-10.0)
[2020-07-16 09:30] LABS: HCG, Serum Qual Negative (Negative)
[2020-07-16 09:41] LABS: Troponin(5th) Baseline 6 ng/L (0-10)
[2020-07-16 09:50] LABS: Alanine Aminotransferase 9 U/L (0-33); Albumin Level 4.3 g/dL (3.5-5.2); Alkaline Phosphatase 75 IU/L (35-105); Aspartate Amino Transferase 13 U/L (0-32); Blood Urea Nitrogen 11 mg/dL (6-20); Calcium 9.1 mg/dL (8.5-10.5); Carbon Dioxide 24 mmol/L (22-29); Chloride 103 mmol/L (98-107); Globulin 2.7 g/dL (1.3-4.6); Glucose 79 mg/dL (65-115); Osmolality Calculated 280 mOsm/kg (285-295); Sodium 136 mmol/L (136-145); Thyroid Stimulating Hormone 4.96 uIU/mL (0.27-4.20); Total Bilirubin 0.3 mg/dL (0.15-1.2)
[2020-07-16 10:11] VITALS: BP 101/72; PULSE 76; RESP 18; O2SAT 97
[2020-07-16 10:37] LABS: Amphetamines Screen Urine Negative (Negative); Barbiturates Screen Urine Negative (Negative); Benzodiazepines Screen Urine Negative (Negative); Cocaine Screen Urine Negative (Negative); Opiate Screen Urine Negative (Negative); PCP Screen Urine Negative (Negative); THC Screen Urine Negative (Negative)
--- NOTE | 2020-07-16 10:38 | ECG_ITS ---
[facility] Test Date: 2020-07-16 Pat Name: Lilly Alvarado Department: Room: Gender: Female Testing Analyst: : 1980 Requested By: Cheyanne Cornell Order Number: [id number] Vasques MD: Sugey Pat M.D. Measurements Intervals [place] Rate: 70 P: 59 WI: 154 QRS: 40 QRSD: 102 T: 9 QT: 383 QTc: 416 Interpretive Statements SINUS RHYTHM POSSIBLE RIGHT VENTRICULAR CONDUCTION DELAY [RSR (QR) IN V1/V2] NONSPECIFIC T-WAVE ABNORMALITY Compared to ECG 07/16/2020 08:46:13 No significant changes Electronically Signed On 07-16-2020 22:18:56 CYBER SECURITY ARCHITECT by Sugey Pat M.D. [id number] f
[2020-07-16 11:00] VITALS: BP 108/74; PULSE 67; RESP 16; O2SAT 100
[2020-07-16 11:03] LABS: Free T4 Free Thyroxine 0.88 ng/dL (0.82-1.77)
[2020-07-16 11:30] LABS: Troponin 5 2HR Delta 0 ABS# (0-10)
[2020-07-16 11:56] VITALS: BP 108/74; PULSE 67; RESP 16; O2SAT 100
== END 2020-07-16 11:56 | disposition home or self-care (01) ==
PROVIDERS: Emergency Provider Physician Assistant; PCP Family Medicine
DX: R07.9 Chest pain, unspecified (principal); F17.210 Nicotine dependence, cigarettes, uncomplicated
CPT/HCPCS: 71045; 80053; 80306; 84439; 84443; 84484; 84703; 85025; 93005; 99283

== ENCOUNTER → 2020-07-28 14:45 | Outpatient (BNVA) | payer MEDICAID, SELFPAY | PROVIDERS: PCP Family Medicine; Visit Provider Family Medicine | DX: E55.9 Vitamin D deficiency, unspecified (principal); Z86.39 Personal history of other endocrine, nutritional and metabolic disease; E03.9 Hypothyroidism, unspecified; K21.9 Gastro-esophageal reflux disease without esophagitis; G89.29 Other chronic pain; Z68.27 Body mass index [BMI] 27.0-27.9, adult | CPT/HCPCS: 82306 ==

== ENCOUNTER → 2020-09-28 09:50 | Outpatient (BNVA) | payer MEDICAID, SELFPAY | PROVIDERS: PCP Family Medicine; Visit Provider Family Medicine | DX: K59.09 Other constipation (principal); E03.9 Hypothyroidism, unspecified | CPT/HCPCS: 84439; 84443 ==

== ENCOUNTER → 2020-10-22 09:01 | Outpatient (BNVA) | payer MEDICAID, SELFPAY | PROVIDERS: PCP Family Medicine; Visit Provider Internal Medicine | DX: Z01.812 Encounter for preprocedural laboratory examination (principal); K59.09 Other constipation; Z20.822 Contact with and (suspected) exposure to COVID-19 | CPT/HCPCS: 87635 ==

== ENCOUNTER 2020-10-26 07:21 | Day surgery (SDC) | payer MEDICAID, SELFPAY ==
[2020-10-22 13:45] VITALS: BMI 26.6
[2020-10-26 07:48] VITALS: BP 165/103; PULSE 76; RESP 18; TEMP 36.4; O2SAT 99
[2020-10-26] MEDS: sodium chloride 0.9% 1,000 ML 30 ML IV (08:09)
--- NOTE | 2020-10-26 08:36 | W.PM.OPSFHP ---
Same Day Surgery H&P Indication for Procedure/HPI DATE OF PROCEDURE: October 26, 2020 CHIEF COMPLAINT/INDICATIONFOR SURGICAL PROCEDURE: Constipation PREOP DIAGNOSIS: Chronic constipation PLANNED PROCEDRUE: Operation Date: 10/26/20 09:00 Proposed Procedures p Colonoscopy 54445 K59.09(Not Applicable) - Suman Baum MD Medications/Allergies* Home Medications Medication Instructions Recorded Confirmed Type buprenorphine 8 mg-naloxone 2 mg 1 tab SUBLINGUAL TID tab 10/21/19 10/26/20 History sublingual tablet cefuroxime axetil 500 mg PO BID PRN 07/16/20 10/22/20 History Allergies/Adverse Reactions Allergy/AdvReac Type Severity Reaction Status Date / Time oxycodone [From Roxicodone] Allergy Mild ALGY-Rash Verified 10/22/20 13:42 ciprofloxacin Allergy ALGY-Anaphy Verified 10/22/20 13:42 laxis Current Medications: Generic Name Dose Route Start Last Admin Trade Name Freq PRN Reason Stop Dose Admin Sodium Chloride 1,000 mls @ 30 mls/hr 10/26/20 07:45 10/26/20 08:09 Sodium Chloride 0.9% IV 10/27/20 07:44 30 mls/hr .Q24H GRACE Administration Pertinent History/Comorbid Conditions* Medical History (Updated 09/28/20 @ 09:48 by Tuyet Urias DO) Calculus of kidney Cystitis GERD (gastroesophageal reflux disease) Gross hematuria Headache, chronic migraine without aura Opioid contract exists Palpitations Surgical History (Updated 09/28/20 @ 09:48 by Tuyet Urias DO) H/O: hysterectomy History of appendectomy History of colonoscopy (~2018) dr. hung- [facility] [place] S/P cholecystectomy Status post biopsy of kidney Family History (Updated 05/13/19 @ 13:27 by Shy Gaitan RN) Cancer Father Hypertension Father Mother Social History Smoking and tobacco status: current every day smoker cigarettes Packs smoked per day: 1 Alcohol intake: never Marital status: Current occupational status: employed History of recent travel: No Pertinent Exam Findings alert, oriented x 3, clear to auscultation bilaterally, regular rate & rhythm, operative site marked and procedure specific exam findings Recommendations Surgery/Procedure today Coding Level of Care Code Acute Pediatric Radiologist for Chetan Frankel
--- NOTE | 2020-10-26 08:55 | ANES.PREANE2 ---
Pre-Anesthetic Assessment Pre-Anesthetic Assessment: Height/Weight: Height 1.65 m Weight 72.575 kg Temp Pulse Resp BP Pulse Ox 97.5 F L 76 18 165/103 99 10/26/20 07:48 10/26/20 07:48 10/26/20 07:48 10/26/20 07:48 10/26/20 07:48 Preop Diagnosis: Chronic constipation Proposed Procedure: Operation Date: 10/26/20 09:00 Proposed Procedures p Colonoscopy 10233 K59.09(Not Applicable) - Suman Baum MD Was Beta Heidy taken within 24 hours: N/A Was Clonidine taken within 24 hours: N/A Last intake: Intake Last Liquid Date 10/25/20 Last Liquid Time 23:00 Last Solid Date 10/24/20 Last Solid Time 17:00 Social: Social History: Tobacco and No alcohol Exam: Pre-Anes Outpt Exam: alert, oriented x 3 and regular rate & rhythm Airway: Submandibular: WNL Cervical ROM: WNL MP: 2 CV/HEM: CV/HEM: HTN GI: GI: GERD Metabolic: Metabolic: Thyroid Musc/skel: Musc/skel: OA/DJD Neuropsych: Neuropsych: Anxiety, Depression and ALBERTO Anesthetic Plan: ASA status: 3 Anesthesia: MAC Risk of > 500 ml blood loss (7ml/kg in children): No Meds/Allergies Current Medications: Current Medications Generic Name Dose Route Start Last Admin Trade Name Freq PRN Reason Stop Dose Admin Sodium Chloride 1,000 mls @ 30 ml s/hr 10/26/20 07:45 10/26/20 08:09 Sodium Chloride 0.9% IV 10/27/20 07:44 30 mls/hr .Q24H GRACE Administration PFSH Anesthesia PFSH: Medical History Calculus of kidney Cystitis GERD (gastroesophageal reflux disease) Gross hematuria Headache, chronic migraine without aura Opioid contract exists Palpitations Surgical History H/O: hysterectomy History of appendectomy History of colonoscopy (~2018) dr. hung- [facility] [place] S/P cholecystectomy Status post biopsy of kidney Family History Father Cancer Hypertension Mother Hypertension Social History Smoking and tobacco status: current every day smoker cigarettes Packs smoked per day: 1 Alcohol intake: never Marital status: Current occupational status: employed History of recent travel: No Data Anesthesia Cardiac Studies: No Data to Display
[2020-10-26 09:10] VITALS: BP 137/88; PULSE 65; RESP 18; TEMP 36.6; O2SAT 100
[2020-10-26 09:23] VITALS: BP 131/75; PULSE 74; RESP 18; O2SAT 100
--- NOTE | 2020-10-26 13:34 | ANE.PACU2 ---
Inpatient post-anesthesia follow up: Airway intact: Yes Vital signs: Temperature 97.8 F Pulse Rate 74 Respiratory Rate 18 Blood Pressure 131/75 Pulse Oximetry 100 Oxygen Delivery Me thod Room Air Oxygen Flow Rate Fraction of Inspir ed Oxygen Hydration adequate: Yes Nausea and vomiting: No Pain level: 1 Mental status: Baseline
== END 2020-10-26 09:33 | disposition home or self-care (01) ==
PROVIDERS: PCP Family Medicine; Visit Provider Internal Medicine
PROC: 0DJD8ZZ Inspection of Lower Intestinal Tract, Via Natural or Artificial Opening Endoscopic (ICD-10-PCS; CPT 45378; principal; 2020-10-26 09:00)
DX: K59.09 Other constipation (principal); K21.9 Gastro-esophageal reflux disease without esophagitis; F17.210 Nicotine dependence, cigarettes, uncomplicated; I10 Essential (primary) hypertension; M19.90 Unspecified osteoarthritis, unspecified site; F41.9 Anxiety disorder, unspecified; F32.9 Major depressive disorder, single episode, unspecified; Z79.891 Long term (current) use of opiate analgesic
CPT/HCPCS: 45378; 96360; J2704; J7030

== ENCOUNTER 2020-10-30 10:31 | Outpatient (CLI) | payer MEDICAID, SELFPAY ==
[2020-10-30 10:38] VITALS: BMI 26.6
--- NOTE | 2020-10-30 10:39 | ECG_ITS ---
[facility] Test Date: 2020-10-30 Pat Name: Lilly Alvarado Department: Room: Gender: Female Traveling Missionary: : 1980 Requested By: Vinod Sharp Order Number: [id number] Caprice MD: Vinod Sharp M.D. Interpretive Statements NAME OF STUDY: TREADMILL STRESS TEST INDICATION: [Chest Pain] EXERCISE DATA: The patient was exercised by Daniel protocol. Baseline heart rate was 71 beats per minute. Baseline blood pressure was 148/85 millimeters of mercury. Target heart rate was 152 beats per minute. Maximum heart rate achieved was 157, which was 103% of the target heart rate. Maximum blood pressure was 214/65 millimeters of mercury. Total exercise time was 9 minutes and 27 seconds. Maximum METs achieved was 13.5, maximum VO2 was 47.3. The reason for ending the test was completion of the protocol. The patient complained of shortness of breath during the stress test, which then resolved at the end of the test. ELECTROCARDIOGRAM: BASELINE: Showed sinus rhythm, normal axis, no significant ST-T changes at the baseline noted. [] EXERCISE: At the peak exercise level, [] No significant ST-T changes suggestive of ischemia noted. [] RECOVERY: During the recovery period, heart rate dropped appropriately. No significant ST-T changes in the recovery suggestive of ischemia noted. [] CONCLUSION: 1. Exercise capacity excellent. 2. Heart rate response was appropriate. 3. Blood pressure response was appropriate. 4. Symptoms not suggestive of ischemia. 5. Stress test was not suggestive of ischemia. Electronically Signed On 12-08-2020 15:13:44 CDT by Vinod Sharp M.D. [id number]
[2020-10-30 11:07] VITALS: BP 149/86; PULSE 84
== END 2020-10-30 10:32 | disposition home or self-care (01) ==
PROVIDERS: PCP Family Medicine; Visit Provider Internal Medicine
DX: R07.9 Chest pain, unspecified (principal)
CPT/HCPCS: 93017

== ENCOUNTER → 2020-11-10 14:38 | Outpatient (BNVA) | payer MEDICAID, SELFPAY | PROVIDERS: PCP Family Medicine; Visit Provider Family Medicine | DX: E03.9 Hypothyroidism, unspecified (principal); R06.2 Wheezing; F17.219 Nicotine dependence, cigarettes, with unspecified nicotine-induced disorders | CPT/HCPCS: 84439; 84443 ==

== ENCOUNTER → 2020-12-08 08:38 | Outpatient (BNVA) | payer MEDICAID, SELFPAY | PROVIDERS: PCP Family Medicine; Visit Provider Anesthesiology Pain Medicine | DX: G89.29 Other chronic pain (principal); M47.816 Spondylosis without myelopathy or radiculopathy, lumbar region; M54.12 Radiculopathy, cervical region; M50.90 Cervical disc disorder, unspecified, unspecified cervical region; M47.812 Spondylosis without myelopathy or radiculopathy, cervical region; M25.562 Pain in left knee; M19.90 Unspecified osteoarthritis, unspecified site | CPT/HCPCS: 99214 ==

== ENCOUNTER 2020-12-08 12:40 | Outpatient (CLI) | payer MEDICAID, SELFPAY ==
--- NOTE | 2020-12-08 13:10 | XR_ITS ---
WS: [id number] Exam: XR lumbar spine min 4V [id number] Date/Time of Exam: 12/08/2020 1:11 PM Reason For Exam: M47.816 - Spondylosis without myelopathy or radiculopathy... Comparison 02/27/2020. No fracture or dislocation. Disc spaces are preserved. Posterior elements are intact. Minimal spondyl osis. XR/XR lumbar spine min 4V [id number] IMPRESSION: 1. No fracture or malalignment.
--- NOTE | 2020-12-08 13:10 | XR_ITS ---
WS: [id number] Exam: [place] [id number] Date/Time of Exam: 12/08/2020 1:11 PM Reason For Exam: M19.90 - Unspecified osteoarthritis, unspecified site Compared to left knee performed 04/02/2013 AP standing views of both knees show no fracture or dislocation. The medial lateral joint compartment s are preserved. Normal bilateral soft tissues. XR/[place] [id number] IMPRESSION: 1. Unremarkable AP standing images of both knees.
== END 2020-12-08 12:41 | disposition home or self-care (01) ==
PROVIDERS: PCP Family Medicine; Visit Provider Anesthesiology Pain Medicine
DX: M47.816 Spondylosis without myelopathy or radiculopathy, lumbar region (principal); M19.90 Unspecified osteoarthritis, unspecified site
CPT/HCPCS: 72110; 73565

== ENCOUNTER → 2020-12-15 15:12 | Outpatient (BNVA) | payer MEDICAID, SELFPAY | PROVIDERS: PCP Family Medicine; Visit Provider Nurse Practitioner Family | DX: Z20.822 Contact with and (suspected) exposure to COVID-19 (principal) | CPT/HCPCS: 87635 ==

== ENCOUNTER → 2021-01-05 10:38 | Outpatient (BNVA) | payer MEDICAID, SELFPAY | PROVIDERS: PCP Family Medicine; Visit Provider Family Medicine | DX: I10 Essential (primary) hypertension (principal); E03.9 Hypothyroidism, unspecified | CPT/HCPCS: 84439; 84443 ==

== ENCOUNTER → 2021-01-08 09:18 | Outpatient (BNVA) | payer MEDICAID, SELFPAY | PROVIDERS: PCP Family Medicine; Visit Provider Anesthesiology Pain Medicine | DX: G89.29 Other chronic pain (principal); M25.562 Pain in left knee; M47.816 Spondylosis without myelopathy or radiculopathy, lumbar region; M25.541 Pain in joints of right hand; M25.542 Pain in joints of left hand; M50.90 Cervical disc disorder, unspecified, unspecified cervical region; M54.12 Radiculopathy, cervical region; M47.812 Spondylosis without myelopathy or radiculopathy, cervical region; F17.210 Nicotine dependence, cigarettes, uncomplicated | CPT/HCPCS: 99214 ==

== ENCOUNTER 2021-01-25 08:40 | Emergency (ER) | payer MEDICAID, SELFPAY ==
--- NOTE | 2021-01-25 08:52 | XR_ITS ---
WS: [id number] XR chest 1V portable [id number] REASON FOR EXAM: dyspnea/cough FINDINGS: The chest is unchanged compared to previous examination of 07/16/2020. Heart and mediastinum are within normal limits. No active pulmonary parenchymal or pleural disease is noted. XR/XR chest 1V portable [id number] IMPRESSION: No acute abnormality.
[2021-01-25 08:54] VITALS: BP 141/83; PULSE 73; RESP 16; TEMP 36.7; O2SAT 98; BMI 25.7
[2021-01-25] MEDS: sodium chloride 0.9% 1,000 ML 999 ML IV (09:31)
--- NOTE | 2021-01-25 09:36 | ED_ITS ---
HPI - Dizziness General: Chief Complaint: Dizziness Stated Complaint: Dizziness Time Seen by Provider: 01/25/21 08:49 History of Present Illness: HPI Narrative: 40-year-old female presents emergency room with lightheadedness and dizziness vertiginous-like symptoms especially if she moves her head she states she lays on her left side she has no symptoms at all but when she stands moves her head she immediately gets very vertiginous no recent head trauma or illness. MD elicited complaint: vertigo Onset (ago): day(s) Timing: sudden onset Severity: moderate Description: sense of movement and room spinning Context: change in body position History of similar symptoms: No Exacerbating factors: movement/ambulation and change in body position Relieving factors: remaining still and lying down Associated symptoms: Denies change in hearing, chest pain, chills, cough, diaphoresis, ear discharge, ear pressure, fevers/chills, headache(s), malaise, nausea, nasal congestion, palpitations, rash, short of breath, syncope, tinnitus, vomiting or weakness Associated neuro symptoms: Deny confusion, difficulty speaking, dysphagia, diplopia, extremity weakness, facial numbness, facial weakness, gait changes, numbness in extremities or visual changes Review of Systems Const: Denies: chills, malaise or diaphoresis ENMT: Denies: ear discharge, change in hearing, tinnitus or nasal congestion Card: Denies: chest pain, palpitations or syncope Resp: Denies: dyspnea, productive cough or non-productive cough GI: Denies: nausea, vomiting or dysphagia : Denies: flank pain, difficulty voiding, dysuria, urinary frequency or urinary urgency Skin/Breast: Denies: rash or pruritus Neuro: Denies: headache(s), numbness in extremities or confusion PFS ED PFSH: Medical History Calculus of kidney Cystitis GERD (gastroesophageal reflux disease) Gross hematuria Headache, chronic migraine without aura Opioid contract exists Palpitations Surgical History H/O: hysterectomy History of appendectomy History of colonoscopy (~2019) dr. hung- [facility] [place] cholecystectomy Status post biopsy of kidney Family History Father Cancer Hypertension Mother Hypertension Social History Alcohol intake: never Marital status: Current occupational status: employed History of recent travel: No Physical Exam Const: COMMON NORMALS: no acute distress GENERAL APPEARANCE: cooperative and comfortable ORIENTATION/CONSCIOUSNESS: Yes awake, Yes oriented to person, Yes oriented to place and Yes oriented to time HENMT: COMMON NORMALS: normocephalic, atraumatic, hearing grossly normal bilaterally, external ears normal, EAC's normal, TM's normal bilaterally and Normal nasal mucous membranes and turbinates present HEAD & SCALP: normocephalic and atraumatic NOSE: Normal nasal mucous membranes and turbinates present EXTERNAL EAR: Yes external ears normal EXTERNAL AUDITORY CANAL: EAC's normal TYMPANIC MEMBRANE: TM's normal bilaterally Eye: COMMON NORMALS: Equal, round and reactive pupils present, EOMs intact bilaterally, conjunctivae normal and no scleral icterus CONJUNCTIVA: Yes conjunctivae normal PUPIL: Yes Equal, round and reactive pupils present Neck/C-Spine: COMMON NORMALS: no JVD Resp: COMMON NORMALS: normal respiratory effort, No retractions, No use of accessory muscles and clear to auscultation bilaterally AUSCULTATION: clear to auscultation bilaterally Cardio: COMMON NORMALS: no JVD, regular rate, regular rhythm and No murmurs present (Cardio) RATE: regular rate RHYTHM: regular rhythm GI: COMMON NORMALS: Soft to palpation and No hepatosplenomegaly present AUSCULTATION: Yes normoactive bowel sounds PALPATION: Yes Soft to palpation, No Tenderness to palpation present (GI), No Guarding due to palpation present (GI) and Yes No hepatosplenomegaly present Extremity: COMMON NORMALS: normal to inspection, capillary refill normal, no clubbing, cyanosis or edema, no calf tenderness and no pedal edema Neuro: SENSORIUM/ORIENTATION: Yes oriented to person, Yes oriented to place and Yes oriented to time Skin: COMMON NORMALS: no rashes or lesions noted GENERAL SKIN EXAM: no rashes or lesions noted Course Vital Signs: Vital signs: Vital Signs Temperature 98.1 F 01/25/21 08:54 Pulse Rate 64 01/25/21 11:21 Respiratory Rate 15 01/25/21 11:21 Blood Pressure 130/83 01/25/21 11:21 Pulse Oximetry 100 01/25/21 11:21 MDM - Dizziness MDM Narrative: Medical decision making narrative: Reviewed labs with patient. Exam is unremarkable symptoms reproducible we will go ahead and discharge home follow-up as needed meclizine as needed Lab Data: Labs: Lab Results 01/25/21 01/25/21 Range/Units 09:30 09:30 WBC 11.4 H (4.0-10.0) 10^3/ uL RBC 4.70 (4.1-5.3) 10^6/u L Hgb 14.4 (11.5-15.3) g/dL Hct 45.4 (37.0-47.0) % MCV 96.6 (81-99) fl MCH 30.6 (28.0-34.0) pg MCHC 31.7 (30.0-36.0) g/dL RDW 13.2 (12.1-15.1) % Plt Count 259 (130-400) 10^3/c mm MPV 10.1 (7.4-10.4) fL Neut % (Auto) 78.9 % Lymph % (Auto) 14.4 % Clayton % (Auto) 5.4 % Eos % (Auto) 0.5 % Baso % (Auto) 0.4 % Neut # (Auto) 8.97 H (1.8-7.7) 10^3/u L Lymph # (Auto) 1.6 (0.8-4.8) 10^3/u L Clayton # (Auto) 0.6 (0.2-0.9) 10^3/u L Eos # (Auto) 0.1 (0.0-0.8) 10^3/u L Baso # (Auto) 0.1 (0.0-0.1) 10^3/u L Nucleated RBC % (a uto) 0 % Nucleated RBCs # 0.0 /100WBC Sodium 139 (136-145) mmol/L Potassium 4.6 (3.5-5.1) mmol/L Chloride 103 (98-107) mmol/L Carbon Dioxide 28 (22-29) mmol/L Anion Gap 12.6 (5-19) BUN 10 (6-20) mg/dL Creatinine 0.7 (0.5-0.9) mg/dL GFR Calculation 91.8 (90-130) mL/min Glucose 67 (65-115) mg/dL Calculated Osmolal ity 285 (285-295) mOsm/k g Calcium 8.9 (8.5-10.5) mg/dL Total Bilirubin 0.2 (0.15-1.2) mg/dL AST 16 (0-32) U/L ALT 11 (0-33) U/L Alkaline Phosphata se 93 (35-105) IU/L Total Protein 7.2 (6.6-8.7) g/dL Albumin 4.4 (3.5-5.2) g/dL Globulin 2.8 (1.3-4.6) g/dL Lipase 21 (13-60) U/L Discharge Plan Discharge Patient Disposition: Home Clinical Impression: Benign paroxysmal positional vertigo Condition: Stable Prescriptions: New meclizine 25 mg tablet 25 mg PO TID PRN (Reason: dizziness) Qty: 20 RF: 0 No Action albuterol sulfate [ProAir HFA] 90 mcg/actuation HFA aerosol inhaler 2 puff inhalation Q6H PRN (Reason: shortness of breath or wheezing) Qty: 8.5 RF: 0 clonidine HCl 0.1 mg tablet 0.1 mg PO TID PRN (Reason: hypertensive emergency) Qty: 60 RF: 0 lisinopril 10 mg tablet 10 mg PO DAILY Qty: 30 RF: 0 buprenorphine-naloxone 8-2 mg tablet, sublingual 1 tab SUBLINGUAL TID RF: 0 omeprazole 40 mg capsule,delayed release(DR/EC) 40 mg PO BID@06,19 Qty: 180 RF: 3 trazodone 150 mg tablet 150 mg PO BEDTIME Qty: 30 RF: 4 sertraline 100 mg tablet 100 mg PO DAILY@0600 Qty: 90 RF: 0 tizanidine 4 mg tablet 4 mg PO BID PRN (Reason: muscle spasticity) Qty: 60 RF: 2 levothyroxine 50 mcg tablet 50 mcg PO DAILY 30 Days Qty: 30 RF: 2 cefuroxime axetil 500 mg tablet 500 mg PO BID Qty: 28 RF: 0 Discharge Orders: Discharge ED (Routine); Ordered 01/25/21 Ordered By: Daquan Moore Referrals: Lambert,Tuyet, DO [Primary Care Provider] - Patient Instructions: Opioid Safety Coding Level of Care Code ED Belting And Webbing Inspector for Chetan Frankel
[2021-01-25 09:52] VITALS: BP 137/76; PULSE 72; RESP 15; O2SAT 98
[2021-01-25] MEDS: meclizine 25 mg tablet 50 MG PO (09:52)
[2021-01-25 09:53] LABS: Basophils # 0.1 10^3/uL (0.0-0.1); Basophils % 0.4 %; Eosinophils # 0.1 10^3/uL (0.0-0.8); Eosinophils % 0.5 %; Hematocrit 45.4 % (37.0-47.0); Hemoglobin 14.4 g/dL (11.5-15.3); Lymphocytes # 1.6 10^3/uL (0.8-4.8); Lymphocytes % 14.4 %; Mean Corpuscular HGB Conc 31.7 g/dL (30.0-36.0); Mean Corpuscular Hemoglobin 30.6 pg (28.0-34.0); Mean Corpuscular Volume 96.6 fl (81-99); Mean Platelet Volume 10.1 fL (7.4-10.4); Monocytes # 0.6 10^3/uL (0.2-0.9); Monocytes % 5.4 %; Neutrophils # 8.97 10^3/uL (1.8-7.7); Neutrophils % 78.9 %; Nucleated Red Blood Cells % 0 %; Platelet Count 259 10^3/cmm (130-400); Red Cell Distribution Width 13.2 % (12.1-15.1); White Blood Count 11.4 10^3/uL (4.0-10.0)
[2021-01-25 10:22] LABS: Alanine Aminotransferase 11 U/L (0-33); Albumin Level 4.4 g/dL (3.5-5.2); Alkaline Phosphatase 93 IU/L (35-105); Blood Urea Nitrogen 10 mg/dL (6-20); Calcium 8.9 mg/dL (8.5-10.5); Carbon Dioxide 28 mmol/L (22-29); Chloride 103 mmol/L (98-107); Globulin 2.8 g/dL (1.3-4.6); Glomerular Filtration Rate 91.8 mL/min (90-130); Glucose 67 mg/dL (65-115); Lipase 21 U/L (13-60); Osmolality Calculated 285 mOsm/kg (285-295); Sodium 139 mmol/L (136-145); Total Bilirubin 0.2 mg/dL (0.15-1.2); Total Protein 7.2 g/dL (6.6-8.7)
[2021-01-25 10:50] LABS: Anion Gap 12.6 (5-19); Potassium 4.6 mmol/L (3.5-5.1)
[2021-01-25 10:51] LABS: Aspartate Amino Transferase 16 U/L (0-32)
[2021-01-25 11:21] VITALS: BP 130/83; PULSE 64; RESP 15; O2SAT 100
== END 2021-01-25 11:22 | disposition home or self-care (01) ==
PROVIDERS: Emergency Provider Family Medicine; PCP Family Medicine
DX: H81.10 Benign paroxysmal vertigo, unspecified ear (principal)
CPT/HCPCS: 71045; 80053; 83690; 85025; 96360; 99283; J7030; J8597

== ENCOUNTER 2021-02-15 12:07 | Outpatient (CLI) | payer MEDICAID, SELFPAY ==
--- NOTE | 2021-02-15 12:30 | XR_ITS ---
WS: [id number] KUB, AP view, 02/15/2021 Clinical Data: KIDNEY STONE Comparison: KUB, 05/27/2020. Findings: No abnormal intraabdominal masses or calcifications are seen. There is no dilatated small bowel or ev idence of obstruction. There are clips in the right upper quadrant from a cholecystectomy. There is a large amount of fecal material throughout the colon. There are phleboliths in the true pelvis. XR/XR KUB [id number] Impression: Negative KUB.
== END 2021-02-15 12:08 | disposition home or self-care (01) ==
LOC: RAD 12:11
PROVIDERS: PCP Family Medicine; Visit Provider Urology
DX: N20.0 Calculus of kidney (principal)
CPT/HCPCS: 74018; 81003

== ENCOUNTER 2021-04-07 10:30 | Outpatient (CLI) | payer MEDICAID, SELFPAY ==
--- NOTE | 2021-04-07 11:00 | MM_ITS ---
WS: [id number] BILATERAL DIGITAL SCREENING MAMMOGRAPHY WITH CAD CLINICAL INFORMATION: yearly screening HISTORY: Screening mammogram. Chronic right breast lump COMPARISON: October 11, 2019 TECHNIQUE: Bilateral CC and MLO views. FINDINGS: The breasts are composed of heterogeneous fibroglandular density tissue, which can limit the detectio n of small underlying mass lesions. No suspicious mass, asymmetry, calcifications, or architectural d istortion. No evidence of malignancy. MM/[place] [id number] IMPRESSION: BI-RADS: 1-Negative FOLLOW UP: 1 Year Follow-up Recommend return to annual screening mammography.
== END 2021-04-07 10:31 | disposition home or self-care (01) ==
LOC: RADSHAW 10:36
PROVIDERS: PCP Family Medicine; Visit Provider Family Medicine
DX: Z12.31 Encounter for screening mammogram for malignant neoplasm of breast (principal)
CPT/HCPCS: 77067

== ENCOUNTER 2021-06-09 08:34 | Outpatient (CLI) | payer MEDICAID, SELFPAY ==
--- NOTE | 2021-06-09 08:45 | USCV_ITS ---
Lilly Alvarado Age: 40 Gender: F : 1980 Exam Date: 06/09/2021 09:05 Ordering Phys: Vinod Sharp M.D ([email or web address]) Technologist: SANTO Exam Location: [facility] [place] Indication: AAA HISTORY: Diameter (cm) AP x Transverse x Length Velocity (cm/s) Waveform Prox Aorta: 2.80 x 2.64 x 81.80 Mid Aorta: 1.91 x 2.31 x 66.20 Distal Aorta: 1.67 x 2.05 x 83.00 Right Iliac Prox: 1.10 x 1.61 x 123.40 Left Iliac Prox: 1.21 x 1.39 x 180.20 Stent Prox Landing x x Aneurysmal Sac Max x x Lt Lat Sac Dim Rt Lat Sac Dim Stent Dist Landing x x Right Iliac Stent x x Left Iliac Stent x x Right Renal Art Left Renal Art FINDINGS: Diffuse plaques in the abdominal aorta Normal abdominal aortic dimensions Slightly dilated proximal common leg arteries bilaterally Somewhat tortuous left proximal common iliac artery CONCLUSIONS Mild diffuse plaques in the abdominal aorta with no evidence of aneurysm. Minimal ectasia of the proximal common iliac arteries bilaterally No significant stenosis in the above-mentioned vessels based on these findings Dr Geovanny Whitley MD [facility] (Electronically Signed) Final Date: 11 June 2021 09:22 S
== END 2021-06-09 08:35 | disposition home or self-care (01) ==
LOC: RAD 08:36
PROVIDERS: PCP Family Medicine; Visit Provider Internal Medicine
DX: I71.4 Abdominal aortic aneurysm, without rupture (principal)
CPT/HCPCS: 93978

== ENCOUNTER 2021-06-30 07:50 | Outpatient (CLI) | payer MEDICAID, SELFPAY ==
--- NOTE | 2021-06-30 08:00 | USCV_ITS ---
Lilly Alvarado Age: 40 Gender: F : 1980 Exam Date: 06/30/2021 08:02 Ordering Phys: Vinod Sharp M.D ([email or web address]) Technologist: ANKIT Exam Location: [facility] [place] Indication: SOB BP: 150 / 96 HR: 72 Rhythm: Sinus Technical Quality: Adequate MEASUREMENTS (Male / Female) Normal Values 2D ECHO LV Diastolic Diameter PLAX 4.3 cm 4.2 - 5.9 / 3.9 - 5.3 cm LV Systolic Diameter PLAX 2.8 cm IVS Diastolic Thickness 1.2 cm 0.6 - 1.0 / 0.6 - 0.9 cm IVS Systolic Thickness 1.9 cm LVPW Diastolic Thickness 1.0 cm 0.6 - 1.0 / 0.6 - 0.9 cm LVPW Systolic Thickness 1.5 cm LVOT Diameter 2.0 cm LV Ejection Fraction 2D Teich 63.5 % LV Ejection Fraction MOD 2C 71.7 % LV Ejection Fraction 2C AL 73.1 % LA Diameter 2.7 cm LA Width 2.5 cm LA Height 4.9 cm RA Width 2.8 cm RA Height 4.3 cm Aorta at Sinotubular Diameter 1.9 cm M-MODE Aortic Annulus Diameter 2.8 cm LA Ao Ratio MM 1.0 MV E Point Septal Separation 2.0 cm DOPPLER AV Peak Velocity 164.0 cm/s LVOT Peak Velocity 139.0 cm/s AV Area Cont Eq vti 2.4 cm squared AV Area Cont Eq pk 2.7 cm squared MV Peak Velocity 120.0 cm/s MV Area PHT 4.1 cm squared Mitral E to A Ratio 1.4 MV E' Velocity 65.5 cm/s Mitral E to MV E' Ratio 7.8 Mitral E to LV E' Lateral Ratio 7.6 Mitral E to LV E' Septal Ratio 8.1 TR Peak Velocity 105.2 cm/s TR Peak Gradient 4.4 mmHg TR Mean Velocity 79.6 cm/s TR Mean Gradient 2.7 mmHg TR Velocity Time Integral 22.6 cm TV Peak E Velocity 62.0 cm/s Right Atrial Pressure 3.0 mmHg Pulmonary Artery Systolic Pressu 7.4 mmHg PV Peak Velocity 111.0 cm/s RV Acceleration Time 0.1 s RV Ejection Time 0.3 s RV AcT/ET 0.4 FINDINGS Left Ventricle Normal left ventricular size. LV systolic function is normal with EF of 60-65%. No regional wall motion abnormalities. Normal diastolic filling pattern. Right Ventricle The right ventricle is normal in size and function. Right Atrium The right atrium is normal in size. Left Atrium The left atrium is normal in size. Mitral Valve Structurally normal mitral valve without significant stenosis or prolapse. There is no mitral regurgitation. Aortic Valve Structurally normal aortic valve without significant sclerosis or stenosis. There is no aortic regurgitation. Tricuspid Valve Structurally normal tricuspid valve without significant stenosis . Trace tricuspid regurgitation. Pulmonary artery systolic pressure is normal. Pulmonic Valve Structurally normal pulmonic valve without significant stenosis. There is no pulmonic regurgitation. Pericardium Normal pericardium without effusion. Aorta Normal ascending aorta dimension. CONCLUSIONS LV systolic function is normal with EF of 55-60% Diastolic function is normal Trace tricuspid regurgitation No comparison studies are available Vinod Sharp MD (Electronically Signed) Final Date: 08 July 2021 10:48 S
== END 2021-06-30 07:51 | disposition home or self-care (01) ==
LOC: RAD 07:51
PROVIDERS: PCP Family Medicine; Visit Provider Internal Medicine
DX: R06.02 Shortness of breath (principal); I07.1 Rheumatic tricuspid insufficiency
CPT/HCPCS: 93306

== ENCOUNTER → 2021-09-27 14:02 | Outpatient (BNVA) | payer MEDICAID, SELFPAY | PROVIDERS: PCP Family Medicine; Visit Provider Internal Medicine | DX: I10 Essential (primary) hypertension (principal); R06.02 Shortness of breath; R00.2 Palpitations; R07.9 Chest pain, unspecified; F17.210 Nicotine dependence, cigarettes, uncomplicated; R00.0 Tachycardia, unspecified; R00.1 Bradycardia, unspecified | CPT/HCPCS: 93270; 99214 ==

== ENCOUNTER → 2021-11-17 08:46 | Outpatient (BNVA) | payer MEDICAID, SELFPAY | PROVIDERS: PCP Family Medicine; Visit Provider Family Medicine | DX: R10.13 Epigastric pain (principal); Z13.6 Encounter for screening for cardiovascular disorders; F33.1 Major depressive disorder, recurrent, moderate; F51.02 Adjustment insomnia; K21.9 Gastro-esophageal reflux disease without esophagitis; F17.219 Nicotine dependence, cigarettes, with unspecified nicotine-induced disorders | CPT/HCPCS: 80053; 80061; 84443 ==

== ENCOUNTER → 2022-03-10 11:52 | Outpatient (BNVA) | payer MEDICAID, SELFPAY | PROVIDERS: PCP Family Medicine; Visit Provider Family Medicine | DX: E03.9 Hypothyroidism, unspecified (principal); E78.5 Hyperlipidemia, unspecified | CPT/HCPCS: 80053; 80061; 84443 ==

== ENCOUNTER 2022-03-11 09:39 | Outpatient (CLI) | payer MEDICAID, SELFPAY ==
--- NOTE | 2022-03-11 09:50 | XR_ITS ---
WS: [id number] Exam: XR hip RT 2-3V wo/w pel* [id number] Date/Time of Exam: 03/11/2022 9:50 AM Reason For Exam: right hip pain No fracture or dislocation. The joint compartment is relatively well maintained. Mild degenerative ch ld of the acetabulum. Soft tissue calcification seen along the greater trochanter might reflect cora cific bursitis. XR/XR hip RT 2-3V wo/w pel* [id number] IMPRESSION: 1. Minimal DJD of the right hip. No fracture. 2. Soft tissue calcification along the greater trochanter that might reflect ca lcific bursitis.
== END 2022-03-11 09:40 | disposition home or self-care (01) ==
LOC: RAD 09:41
PROVIDERS: PCP Family Medicine; Visit Provider Family Medicine
DX: M16.11 Unilateral primary osteoarthritis, right hip (principal)
CPT/HCPCS: 73502

== ENCOUNTER 2022-03-22 12:33 | Outpatient (CLI) | payer MEDICAID, SELFPAY ==
--- NOTE | 2022-03-22 12:43 | XR_ITS ---
WS: [id number] KUB, AP view, 03/22/2022 Clinical Data: kidney stones (left) Comparison: KUB, 02/15/2021 Findings: No abnormal intraabdominal masses or calcifications are seen. There is no dilatated small bowel or ev idence of obstruction. There is a large amount of fecal material in the colon. There are clips in the right upper quadrant f rom a cholecystectomy. There are phleboliths in the true pelvis. XR/XR KUB [id number] Impression: Negative KUB.
== END 2022-03-22 12:34 | disposition home or self-care (01) ==
PROVIDERS: PCP Family Medicine; Visit Provider Urology
DX: N20.0 Calculus of kidney (principal)
CPT/HCPCS: 74018; 81003

== ENCOUNTER → 2022-05-17 10:34 | Outpatient (BNVA) | payer MEDICAID, SELFPAY | PROVIDERS: PCP Family Medicine; Visit Provider Family Medicine | DX: F33.1 Major depressive disorder, recurrent, moderate (principal); R10.13 Epigastric pain; E03.9 Hypothyroidism, unspecified | CPT/HCPCS: 84439; 84443 ==

== ENCOUNTER → 2022-08-15 09:48 | Outpatient (BNVA) | payer MEDICAID, SELFPAY | PROVIDERS: PCP Family Medicine; Visit Provider Family Medicine | DX: E03.9 Hypothyroidism, unspecified (principal) | CPT/HCPCS: 84439; 84443 ==

== ENCOUNTER 2022-09-13 14:30 | Outpatient (CLI) | payer MEDICAID, SELFPAY | END 2022-09-13 14:31 | disposition home or self-care (01) | LOC: SLEEP 09-14 08:08 | PROVIDERS: PCP Family Medicine; Visit Provider Family Medicine | DX: R06.83 Snoring (principal) | CPT/HCPCS: G0399 ==

== ENCOUNTER → 2022-10-17 10:09 | Outpatient (BNVA) | payer MEDICAID, SELFPAY | PROVIDERS: PCP Family Medicine; Visit Provider Family Medicine | DX: E03.9 Hypothyroidism, unspecified (principal); R11.0 Nausea | CPT/HCPCS: 84439; 84443 ==

== ENCOUNTER → 2022-11-10 15:10 | Outpatient (BNVA) | payer MEDICAID, SELFPAY | PROVIDERS: PCP Family Medicine; Visit Provider Family Medicine | DX: S70.361A Insect bite (nonvenomous), right thigh, initial encounter (principal); W57.XXXA Bitten or stung by nonvenomous insect and other nonvenomous arthropods, initial encounter; E03.9 Hypothyroidism, unspecified | CPT/HCPCS: 84439; 84443; 86003; 86008; 86618; 86666; 86757 ==

== ENCOUNTER → 2023-01-04 10:32 | Outpatient (BNVA) | payer SELFPAY | PROVIDERS: PCP Family Medicine; Visit Provider Registered Nurse Neonatal Intensive Care | DX: M75.32 Calcific tendinitis of left shoulder (principal); M25.512 Pain in left shoulder | CPT/HCPCS: 73030 ==

== ENCOUNTER → 2023-02-13 14:43 | Outpatient (BNVA) | payer MEDICAID, SELFPAY | PROVIDERS: PCP Family Medicine; Visit Provider Family Medicine | DX: I10 Essential (primary) hypertension (principal); R06.2 Wheezing; E03.9 Hypothyroidism, unspecified | CPT/HCPCS: 80053; 84439; 84443; 85025 ==

== ENCOUNTER 2023-05-12 11:08 | Emergency (ER) | payer MEDICAID, SELFPAY ==
[2023-05-12 11:12] VITALS: BP 152/87; PULSE 67; RESP 18; TEMP 36.8; O2SAT 98
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
[2023-05-12] MEDS: naproxen 500 mg Tablet PO (12:26)
== END 2023-05-12 12:56 | disposition home or self-care (01) ==
PROVIDERS: Emergency Provider Emergency Medicine; PCP Family Medicine
DX: S13.4XXA Sprain of ligaments of cervical spine, initial encounter (principal); V89.2XXA Person injured in unspecified motor-vehicle accident, traffic, initial encounter; F17.210 Nicotine dependence, cigarettes, uncomplicated
CPT/HCPCS: 72040; 99283

== ENCOUNTER → 2023-06-20 09:41 | Outpatient (BNVA) | payer MEDICAID, SELFPAY | PROVIDERS: PCP Family Medicine; Visit Provider Family Medicine | DX: N95.1 Menopausal and female climacteric states (principal); M54.12 Radiculopathy, cervical region | CPT/HCPCS: 82670; 83001; 83002 ==

== ENCOUNTER 2023-11-20 10:57 | Outpatient (CLI) | payer MEDICAID, SELFPAY | END 2023-11-20 10:58 | disposition home or self-care (01) | PROVIDERS: PCP Family Medicine; Visit Provider Family Medicine | DX: R19.7 Diarrhea, unspecified (principal) | CPT/HCPCS: 87177; 87209 ==

== ENCOUNTER 2023-11-21 10:15 | Emergency (ER) | payer MEDICAID, SELFPAY ==
[2023-11-21 10:31] VITALS: PULSE 72; RESP 18; TEMP 36.4; O2SAT 100; BMI 23.3
[2023-11-21 10:33] VITALS: BP 175/94
[2023-11-21 11:58] LABS: Basophils # 0.1 10^3/uL (0.0-0.1); Basophils % 0.5 %; Eosinophils # 0.1 10^3/uL (0.0-0.8); Eosinophils % 0.7 %; Hematocrit 42.8 % (36-47); Lymphocytes # 1.7 10^3/uL (0.8-4.8); Lymphocytes % 15.5 %; Mean Corpuscular HGB Conc 33.6 g/dL (30-55); Mean Corpuscular Hemoglobin 30.9 pg (27-33); Mean Corpuscular Volume 91.8 fl (85-98); Mean Platelet Volume 9.9 fL (7.4-10.4); Monocytes # 0.8 10^3/uL (0.2-0.9); Monocytes % 7.5 %; Neutrophils # 8.36 10^3/uL (1.8-7.7); Neutrophils % 75.4 %; Nucleated Red Blood Cells % 0 %; Platelet Count 282 10^3/cmm (157-399); Red Blood Count 4.66 10^6/uL (3.85-5.65); Red Cell Distribution Width 13.4 % (12.1-15.1); White Blood Count 11.09 10^3/uL (3.29-11.43)
[2023-11-21 12:15] LABS: Alanine Aminotransferase 10 U/L (0-33); Albumin Level 4.1 g/dL (3.5-5.2); Alkaline Phosphatase 98 U/L (35-105); Anion Gap 14.1 (5-19); Aspartate Amino Transferase 15 U/L (0-32); Blood Urea Nitrogen 13 mg/dL (6-20); Calcium 9.4 mg/dL (8.5-10.5); Carbon Dioxide 29 mmol/L (22-29); Chloride 102 mmol/L (98-107); Creatinine Clr Calc Pharmacy 111.4073; Globulin 2.9 g/dL (1.3-4.6); Glomerular Filtration Rate 108.1 mL/min (90-130); Glucose 115 mg/dL (65-115); Lipase 23 U/L (13-60); Osmolality Calculated 295 mOsm/kg (285-295); Potassium 3.1 mmol/L (3.5-5.1); Sodium 142 mmol/L (136-145); Total Bilirubin 0.4 mg/dL (0.15-1.2)
[2023-11-21 12:17] LABS: HCG, Serum Qual Negative (Negative)
--- NOTE | 2023-11-21 12:27 | W.ED.ABDPA2 ---
HPI - Abdominal Pain General: Chief Complaint: Abdominal Pain Stated Complaint: abd pain, nausea Time Seen by Provider: 11/21/23 12:22 Source: patient Mode of arrival: ambulatory Limitations: no limitations History of Present Illness: Patient is a 43-year-old female presents to ED today with complaint of abdominal pain. Symptoms have been present over the past 2 weeks or so. She states she has intermittent nausea and vomiting. She initially thought symptoms could be secondary to finding animals underneath her house. She has had a few slimy stools. Subjective fevers and chills. She has no urinary complaints although states her urine always has blood in it. At the walk-in clinic recently by Dr. Gonzáles and told him that she had possibly been seeing black bugs in her vomit. She reportedly was ordered ova/parasite labs however lab would not run off her vomit so she later brought a small formed stool for them to run. History of IBS. Was given Flagyl at clinic visit. No heavy etoh/NSAID use. MD elicited complaint: abdominal pain Onset (ago): day(s) Pain Consistency: intermittent Location: Diffuse Severity: moderate Quality: cramping Radiation: none Migration to: no migration Exacerbating factors: nothing Relieving factors: nothing Associated Symptoms: Reports chills, fever(s) (subjective), nausea and vomiting; Denies dysuria, hematochezia, hematemesis and melena Related Data: Patient : No Review of Systems Const: Reports: fever(s) (subjective) and chills; Denies: body aches, fatigue or malaise Card: Denies: chest pain Resp: Denies: dyspnea GI: Reports: abdominal pain, nausea and vomiting; Denies: hematemesis, hematochezia or melena : Denies: flank pain, difficulty voiding, dysuria, urinary frequency, urinary urgency or urinary hesitancy Musc: Denies: neck pain, back pain, extremity pain or joint pain Skin/Breast: Denies: rash Neuro: Denies: headache(s), numbness in extremities, weakness in extremities, sensory changes or dizziness [facility] PFSH: Medical History Urolithiasis URI (upper respiratory infection) Allergic rhinitis due to allergen Opioid contract exists GERD (gastroesophageal reflux disease) Headache, chronic migraine without aura Palpitations Gross hematuria Calculus of kidney Cystitis Surgical History History of colonoscopy (~2019) dr. hung- [facility] – [place] S/P cholecystectomy History of appendectomy H/O: hysterectomy Status post biopsy of kidney Family History Father Cancer Hypertension Mother , at age 60 Hypertension Heart attack Social History Smoking and tobacco/nicotine status: unknown if used tobacco/nicotine Alcohol intake: never Substance/Drug Use: never Marital status: Current occupational status: employed Physical Exam Const: COMMON NORMALS: no acute distress, average body habitus, patient oriented x3, no limitations, healthy appearing, alert and well nourished Eye: COMMON NORMALS: no scleral icterus Resp: COMMON NORMALS: normal respiratory effort and clear to auscultation bilaterally AUSCULTATION: clear to auscultation bilaterally Cardio: COMMON NORMALS: regular rate and regular rhythm RATE: regular rate RHYTHM: regular rhythm GI: COMMON NORMALS: Normal to inspection, nondistended, normoactive bowel sounds present, Soft to palpation, No hepatosplenomegaly present and no masses INSPECTION: Yes normal to inspection AUSCULTATION: Yes normoactive bowel sounds PALPATION: Yes Soft to palpation, Yes Tenderness to palpation present (GI) (diffusely), No Guarding due to palpation present (GI), No Rigid due to palpation and Yes No hepatosplenomegaly present : COMMON NORMALS: Yes no CVA tenderness BLADDER/KIDNEY EXAM: Yes no CVA tenderness Back/Pelvis: COMMON NORMALS: no CVA tenderness Neuro: COMMON NORMALS: patient oriented x3 SENSORIUM/ORIENTATION: Yes alert Course Vital Signs: Vital signs: Vital Signs Temperature 97.6 F 11/21/23 10:31 Pulse Rate 69 11/21/23 14:35 Respiratory Rate 18 11/21/23 10:31 Blood Pressure 175/94 11/21/23 10:33 Pulse Oximetry 99 11/21/23 14:35 Oxygen Delivery Me thod Room Air 11/21/23 14:35 MDM - Abdominal Pain Medical Decision Making Patient appears in no acute distress. Vital signs are stable apart from hypertension. She states she supposed to be taking lisinopril but admittedly does not take it. Blood work here overall is fairly unremarkable. She was mildly hypokalemic at 3.1. She was given oral supplementation for this. Urine is dark in appearance with hematuria. She states this is chronic for her. Looking at previous urine analyses results she has had hematuria dating back to 2019. Her CT scan is essentially unremarkable. She did gain relief from a GI cocktail thus we will try to place her on Protonix and Carafate to help with her discomfort. Recommend follow-up with primary care. Return to ED precautions given. Medical Records I reviewed the patient's medical records. Lab Data I reviewed the patient's lab results. 11/21/23 11:50 11/21/23 11:50 Labs/Radiology: Radiology Impressions Abdomen/Pelvis CT 11/21/23 12:36 IMPRESSION: No acute subdiaphragmatic pathology.. COMMENTS: Consistent with the [employer]'s Incidental Findings Committee white paper (J Am Rebecca Radiol 2018): Any incidental renal lesion less than 1 cm or classified as too small to characterize, or any incidental cystic renal lesion characterized as simple-appearing, is likely benign. No follow-up imaging is recommended for these lesions per consensus recommendations based on imaging criteria. Laboratory Results WBC 11.09 10^3/uL (3.29-11.43) 11/21/23 11:50 RBC 4.66 10^6/uL (3.85-5.65) 11/21/23 11:50 Hgb 14.40 g/dL (11.27-16.99) 11/21/23 11:50 Hct 42.8 % (36-47) 11/21/23 11:50 MCV 91.8 fl (85-98) 11/21/23 11:50 MCH 30.9 pg (27-33) 11/21/23 11:50 MCHC 33.6 g/dL (30-55) 11/21/23 11:50 RDW 13.4 % (12.1-15.1) 11/21/23 11:50 Plt Count 282 10^3/cmm (157-399) 11/21/23 11:50 MPV 9.9 fL (7.4-10.4) 11/21/23 11:50 Neut % (Auto) 75.4 % 11/21/23 11:50 Lymph % (Auto) 15.5 % 11/21/23 11:50 Hand % (Auto) 7.5 % 11/21/23 11:50 Eos % (Auto) 0.7 % 11/21/23 11:50 Baso % (Auto) 0.5 % 11/21/23 11:50 Neut # (Auto) 8.36 10^3/uL (1.8-7.7) H 11/21/23 11:50 Lymph # (Auto) 1.7 10^3/uL (0.8-4.8) 11/21/23 11:50 Hand # (Auto) 0.8 10^3/uL (0.2-0.9) 11/21/23 11:50 Eos # (Auto) 0.1 10^3/uL (0.0-0.8) 11/21/23 11:50 Baso # (Auto) 0.1 10^3/uL (0.0-0.1) 11/21/23 11:50 Nucleated RBC % (auto) 0 % 11/21/23 11:50 Nucleated RBCs # 0.0 /100WBC 11/21/23 11:50 Sodium 142 mmol/L (136-145) 11/21/23 11:50 Potassium 3.1 mmol/L (3.5-5.1) L 11/21/23 11:50 Chloride 102 mmol/L (98-107) 11/21/23 11:50 Carbon Dioxide 29 mmol/L (22-29) 11/21/23 11:50 Anion Gap 14.1 (5-19) 11/21/23 11:50 BUN 13 mg/dL (6-20) 11/21/23 11:50 Creatinine 0.6 mg/dL (0.5-0.9) 11/21/23 11:50 GFR Calculation 108.1 mL/min (90-130) 11/21/23 11:50 Glucose 115 mg/dL (65-115) 11/21/23 11:50 Calculated Osmolality 295 mOsm/kg (285-295) 11/21/23 11:50 Calcium 9.4 mg/dL (8.5-10.5) 11/21/23 11:50 Magnesium 2.0 mg/dL (1.7-2.3) 11/21/23 11:50 Total Bilirubin 0.4 mg/dL (0.15-1.2) 11/21/23 11:50 AST 15 U/L (0-32) 11/21/23 11:50 ALT 10 U/L (0-33) 11/21/23 11:50 Alkaline Phosphatase 98 U/L (35-105) 11/21/23 11:50 Total Protein 7.0 g/dL (6.6-8.7) 11/21/23 11:50 Albumin 4.1 g/dL (3.5-5.2) 11/21/23 11:50 Globulin 2.9 g/dL (1.3-4.6) 11/21/23 11:50 Lipase 23 U/L (13-60) 11/21/23 11:50 HCG, Qual Negative (Negative) 11/21/23 11:50 Urine Color Dark yellow (Yellow) A 11/21/23 12:27 Urine Appearance Cloudy (CLEAR) A 11/21/23 12:27 Urine pH 7 (5-7) 11/21/23 12:27 Ur Specific [place] 1.015 (1.005-1.030) 11/21/23 12:27 Urine Protein Neg (Negative) 11/21/23 12:27 Urine Glucose (UA) Norm (Normal) 11/21/23 12:27 Urine Ketones Negative (Negative) 11/21/23 12:27 Urine Blood 2+ (Negative) H 11/21/23 12:27 Urine Nitrate Negative (Negative) 11/21/23 12:27 Urine Bilirubin Neg (Negative) 11/21/23 12:27 Urine Urobilinogen Norm mg/dL (Negative) 11/21/23 12:27 Ur Leukocyte Esterase Negative (Negative) 11/21/23 12:27 Urine RBC 0-4 /hpf (0-2) H 11/21/23 12:27 Urine WBC None /hpf (0-5) 11/21/23 12:27 Ur Squamous Epith Cells 5-10 /hpf (0-5) H 11/21/23 12:27 Calcium Oxalate Crystal 0-4 /hpf H 11/21/23 12:27 Amorphous Sediment 2+ /hpf 11/21/23 12:27 Urine Bacteria 1+ /hpf (NONE) H 07/09/24 12:27 Urine Mucus Trace /hpf 11/21/23 12:27 All radiology interpretation(s) finalized by discharge Discharge Plan Discharge Patient Disposition: Home Clinical Impression: Abdominal pain Qualifiers: Abdominal location: generalized Qualified Code(s): R10.84 - Generalized abdominal pain Condition: Stable Prescriptions: New Carafate 1 gram tablet 1 g PO TID 14 Days Qty: 42 0RF Changed Protonix 40 mg tablet,delayed release (DR/EC) 40 mg PO BID Qty: 60 0RF Discontinued omeprazole 40 mg capsule,delayed release(DR/EC) 40 mg PO DAILY No Action cyclobenzaprine 5 mg tablet 5 mg PO TID PRN (Reason: muscle spasm) Qty: 30 0RF metronidazole 500 mg tablet 500 mg PO BID Qty: 10 0RF ondansetron 4 mg tablet,disintegrating 4 mg PO Q8H PRN (Reason: nausea and vomiting) Qty: 30 0RF lisinopril 20 mg tablet 10 mg PO DAILY Qty: 90 3RF paroxetine HCl 10 mg tablet 10 mg PO DAILY Qty: 90 0RF atorvastatin 40 mg tablet 40 mg PO BEDTIME levothyroxine 100 mcg tablet 100 mcg PO DAILY trazodone 150 mg tablet 150 mg PO BEDTIME Discharge Orders: Discharge ED (Routine); Ordered 11/21/23 Ordered By: Cheyanne Cornell Referrals: Tuyet Urias DO [Primary Care Provider] - Patient Instructions: Abdominal Pain (ED) Activity Restrictions/Additional Instructions: As we discussed I would like you to do a bland liquid diet and slowly advance as tolerated. I am placing you on 2 different medications to hopefully help with your discomfort. I would like you to follow-up with primary care. Please return to the emergency department for worsening abdominal pain, repetitive episodes of vomiting, any blood in your vomit, fevers, generally feeling worse or unwell, or any other concerns you may have. Coding Level of Care Code ED Regenerator Operator for Chetan Frankel
[2023-11-21] MEDS: potassium chloride ER 20 mEq Tablet 40 MEQ PO (12:35)
--- NOTE | 2023-11-21 12:36 | CTR_ITS ---
PROCEDURE INFORMATION: Exam: CT Abdomen And Pelvis With Contrast Exam date and time: 11/21/2023 12:58 PM Age: 43 years old Clinical indication: Abdominal pain; Generalized; Prior surgery; Surgery date: 6+ months; Surgery type: Hyst; Patient HX: Difficulty urinating, HX of stones; Additional info: Abdominal pain, vomiting, slimy stools TECHNIQUE: Imaging protocol: Computed tomography of the abdomen and pelvis with contrast. Radiation optimization: All CT scans at this facility use at least one of these dose optimization techniques: automated exposure control; mA and/or kV adjustment per patient size (includes targeted exams where dose is matched to clinical indication); or iterative reconstruction. Contrast material: OMNI 350; Contrast volume: 100 ml; Contrast route: INTRAVENOUS (IV); COMPARISON: CT angio chest w abd pel w con 05/13/2019 11:38 AM RADIATION DOSE METRICS: Total DLP (mGy-cm): 440 FINDINGS: Liver: Normal. No mass. Gallbladder and biliary ducts: Cholecystectomy. Pancreas: Normal. No ductal dilation. Spleen: Normal. No splenomegaly. Adrenal glands: Normal. No mass. Kidneys and ureters: Tiny cysts within each kidney. Stomach and bowel: Unremarkable. No obstruction. No mucosal thickening. Appendix: No evidence of appendicitis. Intraperitoneal space: Unremarkable. No free air. No significant fluid collection. Vasculature: Unremarkable. No abdominal aortic aneurysm. Lymph nodes: Unremarkable. No enlarged lymph nodes. Urinary bladder: Unremarkable as visualized. Reproductive: Unremarkable as visualized. Bones/joints: Unremarkable. No acute fracture. Soft tissues: Unremarkable. CT/CT abdomen pelvis w con* [id number] IMPRESSION: No acute subdiaphragmatic pathology.. COMMENTS: Consistent with the [employer]'s Incidental Findings Committee white paper (J Am Rebecca Radiol 2018): Any incidental renal lesion less than 1 cm or classified as too small to characterize, or any incidental cystic renal lesion characterized as simple-appearing, is likely benign. No follow-up imaging is recommended for these lesions per consensus recommendations based on imaging criteria.
[2023-11-21] MEDS: iohexol 350 mg/mL 500 mL Btl (per mL) IV (12:59)
[2023-11-21 13:02] LABS: Add Urine Microscopic? YES; Bilirubin Urine Neg (Negative); Blood Urine 2+ (Negative); Glucose Urine UA Norm (Normal); Ketones Urine Negative (Negative); Leukocyte Esterase Urine Negative (Negative); Nitrate Urine Negative (Negative); Protein Urine Neg (Negative); Specific Gravity, Urine 1.015 (1.005-1.030); Urine Appearance Cloudy (CLEAR); Urine Color Dark Yellow (Yellow); Urobilinogen Urine Norm (Negative); pH Urine 7 (5-7)
--- NOTE | 2023-11-21 13:10 | PC.PHAR ---
PT STATES CURRENTLY HAS STOPPED ALL MEDICATIONS EXCEPT: METRONIDAZOLE 500MG TWICE DAILY, ONDANSETRON 4 MG EVERY 8 HOURS NEEDED, AND PANTOPRAZOLE 40MG DAILY. I DID NOT REMOVE OTHER MAINTENANCE MEDICATIONS WHICH INCLUDE A STATIN, A THYROID, AND BLOOD PRESSURE MEDICATION.
[2023-11-21 13:31] LABS: Add Urine Culture? No; Amorphous Sediment Urine 2+ /hpf; Bacteria Urine 1+ /hpf; Calcium Oxalate Crystals Urine 0-4 /hpf; Mucus Urine TRACE /hpf; RBC Urine 0-4 /hpf (0-2)
[2023-11-21] MEDS: lidocaine 2% viscous 15 ML, aluminum-mag hydrox-simethicon 30 ML, sucralfate oral liq 1 GM PO (13:44)
[2023-11-21 14:35] VITALS: PULSE 69; O2SAT 99
== END 2023-11-21 14:37 | disposition home or self-care (01) ==
PROVIDERS: Emergency Provider Physician Assistant; PCP Family Medicine
DX: R10.84 Generalized abdominal pain (principal); E87.6 Hypokalemia; I10 Essential (primary) hypertension; Z79.899 Other long term (current) drug therapy
CPT/HCPCS: 36415; 74177; 80053; 81001; 83690; 83735; 84703; 85025; 99285; Q9967

== ENCOUNTER 2023-12-05 14:53 | Outpatient (CLI) | payer MEDICAID, SELFPAY | END 2023-12-05 14:54 | disposition home or self-care (01) | LOC: LAB 14:57 | PROVIDERS: PCP Family Medicine; Visit Provider Family Medicine | DX: R19.7 Diarrhea, unspecified (principal) | CPT/HCPCS: 87338 ==

== ENCOUNTER → 2024-04-15 10:04 | Outpatient (BNVA) | payer MEDICAID, SELFPAY | PROVIDERS: PCP Family Medicine; Visit Provider Family Medicine | DX: E03.9 Hypothyroidism, unspecified (principal); Z86.39 Personal history of other endocrine, nutritional and metabolic disease | CPT/HCPCS: 80053; 80061; 84439; 84443; 85025; 86376 ==

== ENCOUNTER 2024-04-26 12:34 | Outpatient (CLI) | payer MEDICAID, SELFPAY ==
--- NOTE | 2024-04-26 12:45 | USCV_ITS ---
Lilly Alvarado Age: 43 Gender: F : 1980 Exam Date: 04/26/2024 13:03 Ordering Phys: Tom Gonzáles MD Technologist: [facility] [place] [facility] [place]: DVT HISTORY: DVT. PROCEDURES: Venous duplex imaging was performed in only the left lower extremity. The following venous structures were evaluated: common femoral vein, profunda vein, proximal portion of the greater saphenous vein, superficial femoral vein, and the popliteal vein. In addition, the posterior tibial and peroneal trunk were evaluated. FINDINGS: Normal 2-D Doppler and augmentation and compressibility throughout the lower extremity venous structures. Additional imaging through the proximal calf veins also reveals no thrombus. Limited evaluation of the greater saphenous vein is patent with no thrombus. CONCLUSIONS No DVT left lower extremity. Dr. Shy Goodwin DO (Electronically Signed) Final Date: 29 April 2024 09:32 S
== END 2024-04-26 12:35 | disposition home or self-care (01) ==
LOC: RAD 12:37
PROVIDERS: PCP Family Medicine; Visit Provider Family Medicine
DX: M79.605 Pain in left leg (principal)
CPT/HCPCS: 93971

== ENCOUNTER 2024-04-29 12:20 | Outpatient (CLI) | payer MEDICAID, SELFPAY ==
--- NOTE | 2024-04-29 12:45 | USCV_ITS ---
Lilly Alvarado Age: 43 Gender: F : 1980 Exam Date: 04/29/2024 12:39 Ordering Phys: Tom Gonzáles MD Technologist: CT [place] [facility] [place]: Risk Factors: Previous Vascular Surgery: RIGHT LEFT BP: 136.0 / 76.00 BP: 130.0/ 69.00 0 0 Waveform Velocity (cm/s) Velocity (cm/s) Waveform Iliac Prox 112.6 Triphasic Iliac Mid 101.5 Triphasic Iliac Distal 97.4 Triphasic PUMP AND STILL OPERATOR 70.0 Triphasic SFA Prox 95.0 Triphasic SFA Mid 88.0 Triphasic SFA Dist 91.0 Triphasic POP 56.0 Triphasic SHIPBOARD INTELLIGENCE ANALYST 44.0 Triphasic DPA 61.0 Triphasic SUZY 1.1 FINDINGS Minimal plaques in the iliac, femoral and popliteal artery on the left side. Normal arterial Doppler waveforms and velocities. Resting SUZY 1.1 CONCLUSIONS 1. Normal resting SUZY on the left side 2. Intimal thickening and minimal plaques in the iliac, femoral and popliteal arteries 3. No significant stenosis based on the above findings Dr Geovanny Whitley MD [facility] (Electronically Signed) Final Date: 30 April 2024 22:16 S
== END 2024-04-29 12:21 | disposition home or self-care (01) ==
LOC: RAD 12:21
PROVIDERS: PCP Family Medicine; Visit Provider Family Medicine
DX: I70.202 Unspecified atherosclerosis of native arteries of extremities, left leg (principal); I70.8 Atherosclerosis of other arteries; M79.605 Pain in left leg
CPT/HCPCS: 93926

== ENCOUNTER 2024-05-02 13:48 | Emergency (ER) | payer MEDICAID, SELFPAY ==
[2024-05-02 14:03] VITALS: BP 163/107; PULSE 80; TEMP 36.7; O2SAT 100; BMI 22.4
[2024-05-02 14:20] VITALS: BP 170/104; PULSE 86; RESP 16; O2SAT 100
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
[2024-05-02] MEDS: orphenadrine 30 mg/mL Inj 2 mL 60 MG IM (14:40)
[2024-05-02] MEDS: dexamethasone 10 mg/mL INJ IM (14:41)
[2024-05-02] MEDS: ketorolac 60 mg/2 mL INJ IM (14:41)
[2024-05-02 14:48] VITALS: BP 154/100; PULSE 81; RESP 20; O2SAT 100
== END 2024-05-02 15:13 | disposition home or self-care (01) ==
PROVIDERS: Emergency Provider Physician Assistant; PCP Family Medicine
DX: M79.605 Pain in left leg (principal); F17.210 Nicotine dependence, cigarettes, uncomplicated; I10 Essential (primary) hypertension
CPT/HCPCS: 96372; 99284; J1100; J1885; J2360

== ENCOUNTER 2024-12-20 16:38 | Emergency (ER) | payer SELFPAY ==
--- OUTSIDE RECORDS SUMMARY | 2018-07-21 05:45 | XMS_ITS | Continuity of Care Document ---
Author Organization [facility] Address [id number] [address] Phone Care Team Providers Care Sr Technical Sales Consultant Name Role Phone Unavailable Unavailable Unavailable Procedures Procedure Date Limited Oral Evaluation Problem Focused Intraoral Periapical First Film Extraction, Erupted Tooth Or Exposed Monique t (Elevati Advance Directives Directive Yes / No Effective Date File Name No Information Encounters Encounter Description Practice Location Reason(s) For Visit Diagnoses Date Provider Providers Copied on Encounter [facility], [id number] [place], [place], [id number], [place] tel:[phone] [facility] Encounter for dental exam and cleaning w/o abnormal findings No Information Family History Family Member Type Diagnosis Age At Onset No Information Payers Payer name Insurance type Covered constitution party ID Authoriza tion(s) D [employer] CI [id number] Social History Type Description Quantity Date Captured Comments Sex Female Smoking Status No Information Chief Complaint And Reason For Visit No Information Reason For Referral Reason For Referral No Information History Of Present Illness Encounter Date Complaint History Of Prese nt Illness No Information Functional Status Date Functional Assessmen t No Information Instructions Date Instruction Additional Infor mation No Information Assessments Type Assessment Date No Information Patient Care Teams Name Effective Dates (start - stop) Status Members No Information
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
[2024-12-20 16:39] VITALS: BP 143/97; PULSE 83; RESP 16; TEMP 37.2; O2SAT 98; BMI 24.1
--- NOTE | 2024-12-20 16:42 | XRR_ITS ---
PROCEDURE INFORMATION: Exam: XR Chest Exam date and time: 12/20/2024 5:03 PM Age: 44 years old Clinical indication: Pain; Chest pressure; Additional info: Mediastinal chest pain TECHNIQUE: Imaging protocol: Radiologic exam of the chest. Views: 1 view. COMPARISON: CR XR chest 1V portable [id number] 01/25/2021 9:06 AM FINDINGS: Lungs: Unremarkable. No consolidation. Pleural spaces: Unremarkable. No pleural effusion. No pneumothorax. Heart/Mediastinum: Unremarkable. No cardiomegaly. Bones/joints: Unremarkable. Organs: Surgical clips are noted in the right upper quadrant, consistent with history of cholecystectomy. XR/XR chest 1V portable [id number] IMPRESSION: No acute findings.
--- NOTE | 2024-12-20 16:42 | ECG_ITS ---
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1980 Requested By: Thi Schaeffer Order Number: [id number] Vasques MD: NATHANIEL BENAVIDES Measurements Intervals [place] Rate: 71 P: 70 TN: 125 QRS: 61 QRSD: 95 T: 47 QT: 395 QTc: 432 Interpretive Statements SINUS RHYTHM POSSIBLE LEFT ATRIAL ENLARGEMENT [-0.1mV P-WAVE IN V1/V2] POSSIBLE RIGHT VENTRICULAR CONDUCTION DELAY [RSR (QR) IN V1/V2] Compared to ECG 07/16/2020 10:35:29 T-wave abnormality no longer present Electronically Signed On 12-24-2024 18:48:21 CDT by NATHANIEL BENAVIDES [email or web address]
--- NOTE | 2024-12-20 16:43 | W.ED.CHESTPA ---
HPI - Chest Pain General: Chief Complaint: Chest Pain Stated Complaint: chest pain Time Seen by Provider: 12/20/24 16:40 History of Present Illness: 44-year-old female with a history of hypertension who presents emergency room with chest pain. She was at work when it started. Pressure and tightness in her central chest. No known cardiac history. EMS reports her blood pressure was 160s over 100 on presentation and this improved and the chest pain improved as well after she received nitroglycerin. Related Data Home Medications ?Medication ?Instructions ?Recorded ?Confirmed amlodipine 10 mg tablet 10 mg PO DAILY 10/03/24 10/03/24 Previous Rx's ?Medication ?Instructions ?Recorded metoprolol succinate 50 mg 50 mg PO DAILY #90 tabs 10/03/24 tablet,extended release 24 hr Allergies Allergy/AdvReac Type Severity Reaction Status Date / Time oxycodone (From Roxicodone) Allergy Mild ALGY-Rash Verified 10/03/24 14:46 ciprofloxacin Allergy ALGY-Anaphy Verified 10/03/24 14:46 laxis metoprolol Allergy Mild swelling Uncoded 10/03/24 14:46 Review of Systems Narrative: Constitutional symptoms: Negative except as documented in HPI. Skin symptoms: Negative except as documented in HPI. Eye symptoms: Negative except as documented in HPI. ENMT symptoms: Negative except as documented in HPI. Respiratory symptoms: Negative except as documented in HPI. Cardiovascular symptoms: Negative except as documented in HPI. Gastrointestinal symptoms: Negative except as documented in HPI. Genitourinary symptoms: Negative except as documented in HPI. Musculoskeletal symptoms: Negative except as documented in HPI. Neurologic symptoms: Negative except as documented in HPI. Psychiatric symptoms: Negative except as documented in HPI. Endocrine symptoms: Negative except as documented in HPI. PFSH ED PFSH: Medical History (Updated 12/20/24 @ 20:25 by Thi Calles MD) Tobacco use disorder, moderate, dependence Insomnia Major depressive disorder HTN (hypertension) with goal to be determined Urolithiasis Allergic rhinitis due to allergen Opioid contract exists GERD (gastroesophageal reflux disease) Palpitations Calculus of kidney Cystitis Surgical History History of [place] (~[place] [facility] [place] History of appendectomy H/O: hysterectomy Status post biopsy of kidney Family History Father Cancer Hypertension Mother , at age 60 Hypertension Heart attack Social History Smoking and tobacco/nicotine status: current every day tobacco/nicotine user cigarettes Packs smoked per day: 1 Alcohol intake: never Substance/Drug Use: never Marital status: Current occupational status: employed Physical Exam Narrative: EXAM NARRATIVE: General: Alert, no acute distress. Skin: Warm, dry. Head: Normocephalic, atraumatic. Neck: Supple, trachea midline. Eye: Extraocular movements are intact. Ears, nose, mouth and throat: mucosa moist. Cardiovascular: Regular, Normal peripheral perfusion. Respiratory: Lungs are clear to auscultation, respirations are non-labored, breath sounds are equal, Symmetrical chest wall expansion. Gastrointestinal: Soft, Nontender, Non distended Musculoskeletal: Normal ROM, no deformity. Neurological: Alert and oriented, No focal neurological deficit observed. Psychiatric: Cooperative, appropriate mood & affect. Course Vital Signs: Vital signs: Vital Signs Temperature 98.9 F 12/20/24 16:39 Pulse Rate 77 12/20/24 19:00 Respiratory Rate 16 12/20/24 16:39 Blood Pressure 145/93 12/20/24 17:15 Pulse Oximetry 100 12/20/24 19:00 Oxygen Delivery Me thod Room Air 12/20/24 19:00 MDM - Chest Pain Medical Decision Making Differential diagnosis for patient with chest pain includes but is not limited to and based on the above HPI, review of systems and physical exam: Pneumonia. unstable angina. angina. Acute coronary syndrome / SD. Pulmonary embolism. Costochondritis / musculoskeletal. Pleurisy. Pericarditis. Esophageal spasm. Pancreatis. Cholecystitis. Orders placed to evaluate differential diagnosis based on the above differential, HPI and physical exam EKG: Time 1639. Rate 71. Normal sinus rhythm, No ST-T changes, no ectopy, normal WA & QRS intervals, This was reviewed and interpreted by myself the ER physician at 1645 Repeat EKG: Time 1753. Rate 71. Normal sinus rhythm, No ST-T changes, no ectopy, normal WA & QRS intervals, This was reviewed and interpreted by myself the ER physician at 1759 Chest x-ray: No acute process. No infiltrate. No pneumothorax. This was reviewed and interpreted by myself the emergency room physician. I also reviewed the radiology report. Lab Review: Laboratory results were reviewed and interpreted by myself the emergency room physician. No leukocytosis. No anemia. No renal failure. Serial cardiac markers are negative. I reviewed the patient's medical record. Reexamination: Patient remained stable. No increased work of breathing. No altered mental status. No focal motor deficits. Assessment and plan: Noncardiac chest pain - Discharged home - Discussed plan with patient. Answered any questions. - Evaluation and treatment of this problem were appropriate in the emergency setting. Lab Data 12/20/24 17:02 12/20/24 17:02 Radiology Impressions Chest X-Ray 12/20/24 16:42 IMPRESSION: No acute findings. Laboratory Results WBC 9.66 10^3/uL (3.29-11.43) 12/20/24 17:02 RBC 4.39 10^6/uL (3.85-5.65) 12/20/24 17:02 Hgb 13.70 g/dL (11.27-16.99) 12/20/24 17:02 Hct 41.9 % (36-47) 12/20/24 17:02 MCV 95.4 fl (85-98) 12/20/24 17:02 MCH 31.2 pg (27-33) 12/20/24 17:02 MCHC 32.7 g/dL (30-55) 12/20/24 17:02 RDW 12.8 % (12.1-15.1) 12/20/24 17:02 Plt Count 242 10^3/cmm (157-399) 12/20/24 17:02 MPV 9.6 fL (7.4-10.4) 12/20/24 17:02 Neut % (Auto) 53.3 % 12/20/24 17:02 Lymph % (Auto) 34.4 % 12/20/24 17:02 Webb % (Auto) 8.7 % 12/20/24 17:02 Eos % (Auto) 2.4 % 12/20/24 17:02 Baso % (Auto) 0.7 % 12/20/24 17:02 Neut # (Auto) 5.15 10^3/uL (1.8-7.7) 12/20/24 17:02 Lymph # (Auto) 3.3 10^3/uL (0.8-4.8) 12/20/24 17:02 Webb # (Auto) 0.8 10^3/uL (0.2-0.9) 12/20/24 17:02 Eos # (Auto) 0.2 10^3/uL (0.0-0.8) 12/20/24 17:02 Baso # (Auto) 0.1 10^3/uL (0.0-0.1) 12/20/24 17:02 Nucleated RBC % (auto) 0 % 12/20/24 17:02 Nucleated RBCs # 0.0 /100WBC 12/20/24 17:02 Sodium 140 mmol/L (136-145) 12/20/24 17:02 Potassium 4.0 mmol/L (3.5-5.1) 12/20/24 17:02 Chloride 102 mmol/L (98-107) 12/20/24 17:02 Carbon Dioxide 27 mmol/L (22-29) 12/20/24 17:02 Anion Gap 15.0 (5-19) 12/20/24 17:02 BUN 14 mg/dL (6-20) 12/20/24 17:02 Creatinine 0.7 mg/dL (0.5-0.9) 12/20/24 17:02 GFR Calculation 90.1 mL/min (90-130) 12/20/24 17:02 Glucose 101 mg/dL (65-115) 12/20/24 17:02 Calculated Osmolality 291 mOsm/kg (285-295) 12/20/24 17:02 Calcium 9.3 mg/dL (8.5-10.5) 12/20/24 17:02 Total Bilirubin 0.4 mg/dL (0.15-1.2) 12/20/24 17:02 AST 18 U/L (0-32) 12/20/24 17:02 ALT 12 U/L (0-33) 12/20/24 17:02 Alkaline Phosphatase 99 U/L (35-105) 12/20/24 17:02 Troponin T Baseline < 6 ng/L (0-10) 12/20/24 17:02 Troponin T 120 Minute < 6.0 ng/L (0-10) 12/20/24 18:55 Delta Troponin T 0 ABS# (0-10) 12/20/24 18:55 NT-Pro-B Natriuret Pep 83 pg/mL (0-125) 12/20/24 17:02 Total Protein 6.6 g/dL (6.6-8.7) 12/20/24 17:02 Albumin 4.1 g/dL (3.5-5.2) 12/20/24 17:02 Globulin 2.5 g/dL (1.3-4.6) 12/20/24 17:02 All radiology interpretation(s) finalized by discharge Discharge Plan Discharge Patient Disposition: Home Clinical Impression: Non-cardiac chest pain Condition: Stable Prescriptions: No Action amlodipine 10 mg tablet 10 mg PO DAILY metoprolol succinate 50 mg tablet extended release 24 hr 50 mg PO DAILY Qty: 90 3RF Discharge Orders: Discharge ED (Routine); Ordered 12/20/24 Ordered By: Thi Calles Referrals: oTm Gonzáles MD [Primary Care Provider, [facility]] Patient Instructions: Noncardiac Chest Pain (ED), Opioid Safety, Pain Management, Patient Portal & [place] Instructions Activity Restrictions/Additional Instructions: Thank you for choosing [facility] for your healthcare needs today. You have been screened and evaluated and felt safe for discharge. Health conditions do change or evolve sometimes and as such it is important that you follow up with your Primary Doctor to be re checked, 3-5 days is a general good time frame for follow up. You are always welcome to return to the ED for re assessment if your symptoms are worsening or you have new concerns Print Language: Honduran Coding Level of Care Code ED Paraplanner for Chetan Frankel
--- OUTSIDE RECORDS SUMMARY | 2024-12-20 16:48 | XMS_ITS | Patient Health Record ---
Author Organization [facility] Address [address] [place] [address] Care Team Providers Care Nursery Laborer Name Role Phone Tuyet Urias Primary Care Provider Kaveh Fitzpatrick Unavailable [phone] Allergies Allergen (clinical drug ingredient) Drug/Non Drug Allergy documented on EMR Reaction Allergy Type Onset Date Status Ciprofloxacin , Drug Allergy Act lul Reason For Referral No Information Medications Medication SIG (Take, Route, Frequency, Duration) Notes Start Date End Date Status Omeprazole 40 MG Capsule Delayed Release TAKE 1 CAPSULE BY MOUTH EVERY DAY Oral; Duration: 30 Days Active Omeprazole Not-Takin g Levothyroxine Sodium 100 MCG Tablet TAKE ONE TABLET BY MOUTH EVERY DAY Oral; Duration: 30 Days Active traZODone HCl 150 MG Tablet TAKE 1 TABLET BY MOUTH AT BEDTIME Oral; Duration: 30 Days Active Diclofenac Sodium 50 MG Tablet Delayed Release TAKE 1 TABLET BY MOUTH THREE TIMES DAILY FOR 14 DAYS Oral; Duration: 14 Days Active Zoloft Zoloft 05/20/2015 Not-Takin g Potassium Gluconate Potassium gluconate 07/08/2015 Not-Taking Lisinopril Lisinopril 05/20/2015 Not-Kenny ing Social History Tobacco Use: Social History Observation Description Date Details (start date - stop date) Current Smoker NA - NA Social History Tobacco Use: Social Info Question Answer Notes Tobacco Control (Standard) Tobacco use: Current smoker Problems Problem Type SNOMED Code ICD Code Onset Dates Problem Status W/U Status Risk Notes Problem Lumbar spondylosis (241998457) Lumbar spondylosis (M47.816) Active confirmed Plan Of Treatment No Information Insurance Providers Payer Name Payer Address Payer Phone Subscriber Number Group Number Insured Name Patient Relationship to Insured Coverage Start Date Coverage End Date Home [facility] Medicaid Replacement [address] [place] [phone] [id number] Lilly GREENE Self - patient is the insured Medical (General) History Medical History History ICD Code Problem:Anxiety (finding) , Status :: Ac tive Problem:Hypertensive disorde r, systemic arterial (disorder) , Status :: Active Problem:Tobacco user (finding) , Status :: Active Chicken Pox anemia migraine headaches Back Trouble High Blood Pressure Surgical History Surgery Date(Month/Year) gall bladder removal partial hysterectomy right kidney left shoulder Hospitalization History Reason Date(Month/Year) see surgical HX
[2024-12-20 17:11] LABS: Hematocrit 41.9 % (36-47); Hemoglobin 13.70 g/dL (11.27-16.99); Mean Corpuscular HGB Conc 32.7 g/dL (30-55); Mean Corpuscular Hemoglobin 31.2 pg (27-33); Mean Corpuscular Volume 95.4 fl (85-98); Nucleated Red Blood Cells % 0 %; Platelet Count 242 10^3/cmm (157-399); Red Blood Count 4.39 10^6/uL (3.85-5.65); White Blood Count 9.66 10^3/uL (3.29-11.43)
[2024-12-20 17:15] VITALS: BP 145/93; PULSE 78; O2SAT 100
[2024-12-20 17:32] LABS: Troponin(5th) Baseline < 6 ng/L (0-10)
[2024-12-20 17:48] LABS: Alanine Aminotransferase 12 U/L (0-33); Albumin Level 4.1 g/dL (3.5-5.2); Alkaline Phosphatase 99 U/L (35-105); Anion Gap 15.0 (5-19); Aspartate Amino Transferase 18 U/L (0-32); Blood Urea Nitrogen 14 mg/dL (6-20); Calcium 9.3 mg/dL (8.5-10.5); Carbon Dioxide 27 mmol/L (22-29); Chloride 102 mmol/L (98-107); Creatinine Clr Calc Pharmacy 95.9250; Globulin 2.5 g/dL (1.3-4.6); Glucose 101 mg/dL (65-115); NT Pro B Type Natriuretic Pept 83 pg/mL (0-125); Osmolality Calculated 291 mOsm/kg (285-295); Potassium 4.0 mmol/L (3.5-5.1); Sodium 140 mmol/L (136-145); Total Protein 6.6 g/dL (6.6-8.7)
--- NOTE | 2024-12-20 17:53 | ECG_ITS ---
[facility] Test Date: 2024-12-20 Pat Name: Lilly Alvarado Department: Room: Gender: Female [employer] Head: : 1980 Requested By: Thi Schaeffer Order Number: [id number] Caprice MD: NATHANIEL BENAVIDES Measurements Intervals [place] Rate: 71 P: 68 CO: 132 QRS: 58 QRSD: 98 T: 42 QT: 385 QTc: 419 Interpretive Statements SINUS RHYTHM POSSIBLE LEFT ATRIAL ENLARGEMENT [-0.1mV P-WAVE IN V1/V2] INCOMPLETE RIGHT BUNDLE BRANCH BLOCK [90+ ms QRS DURATION, TERMINAL R IN V1/V2, 40+ ms S IN I/aVL/V4/V5/V6] Compared to ECG 12/20/2024 16:39:46 Incomplete right bundle-branch block now present Electronically Signed On 12-24-2024 20:04:35 CDT by NATHANIEL BENAVIDES [email or web address]
[2024-12-20 19:00] VITALS: PULSE 77; O2SAT 100
[2024-12-20 20:18] LABS: Troponin 5 2HR < 6.0 ng/L (0-10); Troponin 5 2HR Delta 0 ABS# (0-10)
[2024-12-20 20:43] VITALS: BP 145/93; PULSE 77; O2SAT 100
== END 2024-12-20 20:44 | disposition home or self-care (01) ==
PROVIDERS: Emergency Provider Emergency Medicine; PCP Family Medicine
DX: R07.89 Other chest pain (principal); K21.9 Gastro-esophageal reflux disease without esophagitis; I10 Essential (primary) hypertension
CPT/HCPCS: 36415; 71045; 80053; 83880; 84484; 85025; 93005; 99285

== ENCOUNTER → 2025-03-20 15:13 | Outpatient (BNVA) | payer SELFPAY | PROVIDERS: PCP Family Medicine; Visit Provider Family Medicine | DX: I10 Essential (primary) hypertension (principal); E03.9 Hypothyroidism, unspecified; Z86.39 Personal history of other endocrine, nutritional and metabolic disease | CPT/HCPCS: 80053; 80061; 84439; 84443; 85025; 86376 ==